=== PATIENT | female | born 1985 | race Two or more races ===

== ENCOUNTER 2024-01-24 08:02 | Inpatient (IN) | payer OTHER, SELFPAY ==
[2024-01-24] VITALS (13 sets, daily range): BP systolic 149–197; BP diastolic 93–131; PULSE 69–87; RESP 16–20; TEMP 36–36.9; O2SAT 96–100; BMI 30.9; BMI 30.6
--- NOTE | ~2024-01-24 | US_ITS ---
EXAMINATION: US ABDOMEN LIMITED CLINICAL INFORMATION: Right upper quadrant pain. COMPARISON: None available. TECHNIQUE: Real-time imaging of the right upper quadrant abdominal viscera. FINDINGS: PANCREAS: Not well visualized. LIVER: Normal. The liver is normal in size. The liver contour is normal. Parenchymal echogenicity is normal. No focal hepatic lesion. There is mild intrahepatic biliary duct dilatation seen. GALLBLADDER: Gallbladder is enlarged. Multiple gallstones. There is mild gallbladder wall thickening in the blood bank laboratory technologist reports that the patient is tender over the gallbladder. Appearance questionable for acute cholecystitis. COMMON BILE DUCT: Slightly dilated measuring 1 cm. RIGHT KIDNEY: Normal. No hydronephrosis. No renal calculi or focal parenchymal lesions. The kidney measures 11 cm in maximum dimension. FREE FLUID: None. US/US abdomen limited IMPRESSION: Gallstones. Upper normal-size gallbladder and gallbladder wall findings questionable for acute cholecystitis. Mild intrahepatic and extrahepatic biliary duct dilatation. Common bile duct measures up to 1 cm. Pancreas not well visualized.
--- NOTE | ~2024-01-24 | CT_ITS ---
EXAMINATION: CT ABDOMEN AND PELVIS WITHOUT CONTRAST CLINICAL INFORMATION: Right upper quadrant pain and hematuria COMPARISON: Previous ultrasound from earlier the same day TECHNIQUE: Multidetector volumetric imaging was performed from the superior aspect of the liver through the pubic symphysis. Sagittal and coronal reformatted images were obtained on the technologist's workstation. This CT examination was performed using dose optimization techniques as appropriate, variously including the following: *Automated exposure control *Adjustment of mA and/or kV according to patient size (this includes techniques or standardized protocols for targeted exams where dose is matched to indication/reason for exam; i.e. extremities or head) *Use of iterative reconstruction technique DLP: 653 mGy-cm FINDINGS: LUNG BASES: The visualized lung bases are unremarkable. LIVER, GALLBLADDER, AND BILIARY TREE: The liver is normal in size, shape, and attenuation. No focal hepatic lesion. No intrahepatic biliary duct dilatation. Mild dilatation of the common bile duct measuring 1 cm. No common bile duct stone appreciated by CT. The gallbladder is slightly enlarged. There are gallstones. The gallbladder wall appears thickened and there is stranding of the pericholecystic fat. Appearance is suggestive of cholecystitis. PANCREAS: Unremarkable. SPLEEN: Unremarkable. ADRENAL GLANDS: 1.5 cm left adrenal nodule. Hounsfield units measure 10 and this probably represents a benign lipid rich adenoma. No imaging follow-up recommended. Normal right adrenal gland. KIDNEYS AND URETERS: The kidneys are normal in size, shape, and attenuation. Small nonobstructing stone in the mid to lower pole of the right kidney. No hydronephrosis ureteral dilatation or ureteral stone. BLADDER: Unremarkable. GASTROINTESTINAL TRACT: Mild diverticulosis of the colon. No evidence of diverticulitis. The small and large bowel are otherwise unremarkable. The appendix is unremarkable. ABDOMINAL WALL: No significant hernia is appreciated. LYMPH NODES: Normal. VASCULAR: Unremarkable. PELVIC VISCERA: IUD in the uterus in satisfactory position. Trace fluid in the pelvis. OSSEOUS STRUCTURES: Unremarkable. CT/CT abdomen pelvis wo IV con IMPRESSION: Small nonobstructing right renal stone. Abnormal appearing gallbladder suggestive of gallstones and acute cholecystitis. Dilated common bile duct measuring 1 cm. No common bile duct stone seen by CT. Diverticulosis. Fleischner guidelines were followed. Findings will be communicated by the [place] workflow media relations director.
--- NOTE | 2024-01-24 08:15 | ED_ITS ---
HPI - Abdominal Pain General Chief Complaint: Abdominal Pain Stated Complaint: Upper Rt Abd Pain Time Seen by Provider: 01/24/24 08:12 Source: patient Mode of arrival: ambulatory Limitations: no limitations History of Present Illness HPI narrative: 38-year-old female presents to the ER for evaluation of right upper quadrant abdominal pain that started last night along with nausea and vomiting. She reports around 1:30am patient she started having severe pain in her RUQ that wrapped around to her right back along with nausea and multiple episodes of bilious vomiting. Pain persisted so she came to the ER for evaluation. She denies any urinary symptoms, no fever, chills, diarrhea or constipation. No chest pain or SOB. Pain is 10/10 in the RUQ. She reports having 2 small margaritas last night, only social drinks, no daily ETOH. and no drug use., MD elicited complaint: abdominal pain Onset (ago): hour(s) Pain Consistency: constant Location: RUQ Severity: severe Pain scale (0-10): 10 Quality: stabbing Radiation: back Migration to: no migration Exacerbating factors: movement Relieving factors: nothing Associated symptoms: nausea and vomiting Related Data Hx Last Menstrual Period: years ago, has IUD Patient : No Home Medications ?Medication ?Instructions ?Recorded ?Confirmed ibuprofen 200 mg tablet 400 mg PO Q8H PRN Pain 01/24/24 01/24/24 Allergies Allergy/AdvReac Type Severity Reaction Status Date / Time No Known Allergies Allergy Verified 01/24/24 08:10 Review of Systems Review of Systems Yes all other systems are reviewed and are negative [facility] Past Medical History Medical History (Updated 01/24/24 @ 14:02 by LATOYA Barrera) Urinary tract infection Acute cholecystitis Hx Last Menstrual Period: years ago, has IUD Social History Social History Smoked in Last 30 Days: No Use of substances other than those prescribed or required for medical reasons: No Advance Directives: No Advance Directives Information Provided: No Do you have a plan to hurt others: No Plan Patient : No Physical Exam ED Vital Signs: Vital Signs - 24 hr 01/24/24 08:06 01/24/24 08:28 01/24/24 08:48 Temperature 96.8 F Pulse Rate 85 86 Respiratory Rate 18 19 18 Blood Pressure 197/131 H 194/115 H Pulse Oximetry 96 98 Oxygen Delivery Method Room Air Room Air 01/24/24 10:14 01/24/24 10:25 01/24/24 12:04 Temperature 98.4 F Pulse Rate 74 73 Respiratory Rate 16 16 16 Blood Pressure 190/116 H 177/109 H Pulse Oximetry 100 98 Oxygen Delivery Method Room Air Room Air BMI result Body Mass Index 30.9 Appearance: Alert. Oriented X3. Laying on the bed hunched over in pain Head: normocephalic, atraumatic. Eyes: Pupils equal, round and reactive to light. ENT: Pharynx normal. No tonsillar swelling or exudate. Neck: Normal inspection. Neck supple. CVS: Normal heart rate and rhythm. Pulses normal. Respiratory: No respiratory distress. Breath sounds normal. Abdomen: Soft with moderate RUQ tenderness w/ guarding, no rebound, +Byrd's sign. normal active bowel sounds Skin: Skin warm and dry. Normal skin color. Normal skin turgor. No rashes. Extremities: No lower extremity edema. No joint swelling. Neuro/psych: Oriented X 3. No motor deficit. No sensory deficit. CN II-XII intact. Normal speech and cognition. Medical Decision Making Medical Decision Making MDM Narrative: 38 yo female presenting with acute onset of RUQ abdominal pain, N/V since last night. Hypertensive on arrival 190/110, likely due to severe pain. No hx HTN. IV established and given IV morphine and zofran. Labs and RUQ U/S ordered Labs showing mild leukocytosis. LFTs w/ mild ALP elevation, normal transaminases. Continued pain after morphine. another dose ordered. BP remains elevated. no chest pain, headache or vision changes. will continue to treat pain and reassess UA with infection. no urinary symptoms. IV rocephin ordered - lactic normal. blood cultures sent. US w/ acute cholecystitis. no CBD stone seen. Dr. Jack consulted for admission ?kidney stone. CT scan ordered for better assessment CT w/ findings c/w acute cholecystitis. no ureteral stone. patient to be admitted to Surgery service w/ medicine consult for hypertension. patient updated on plan of care. Differential Diagnosis Differential Diagnoses: The differential diagnosis associated with the presentation includes acute cholecystitis, choledocholithiasis, ascending cholangitis, pyelonephritis, obstructing kidney stone, UTI Admission/Observation Consideration of admission/observation: Escalation of care including admission/observation considered Consult Healthcare Provider Management of the patient was discussed with: Redrying Machine Operator Dr. Jack Lab Data MDM Lab Attestation statement: I reviewed the patient's lab results. mild leukocytosis, thrombocytosis 01/24/24 08:44 01/24/24 08:18 Labs: Lab Results 01/24/24 01/24/24 01/24/24 Range/Units 08:18 08:44 09:44 WBC 12.4 H (4.8-10.8) X10*3/uL RBC 4.70 (4.20-5.50) X10*6/uL Hgb 13.7 (12.0-16.0) g/dl Hct 40.0 (37.0-47.0) % MCV 85.1 (80.0-98.0) fL MCH 29.1 (27.0-33.0) pg MCHC 34.3 (31.0-35.0) g/dl RDW 12.6 (11.0-16.0) % Plt Count 521 H (160-400) X10*3/uL MPV 8.8 L (9.4-12.3) fL Immature Gran % (Auto) 0.4 (0.0-0.4) % Neut % (Auto) 83.8 H (45-73) % Lymph % (Auto) 12.9 L (20-40) % [place] % (Auto) 2.7 (2-11) % Eos % (Auto) 0.0 (0-4) % Baso % (Auto) 0.2 (0-2) % Lymph # (Auto) 1.6 (1.2-4.9) X10*3/uL [place] # (Auto) 0.3 (0.1-1.2) X10*3/uL Eos # (Auto) 0.0 (0.0-0.4) X10*3/uL Baso # (Auto) 0.0 (0.0-0.2) X10*3/uL Abs Immat Gran (auto) 0.05 H (0.00-0.03) X10*3/uL Absolute Neuts (auto) 10.4 H (2.0-8.3) x10*3/uL Absolute Nucleated RBC 0.000 (0.0-0.012) X10*3/uL Nucleated RBC % (auto) 0.0 (0.0-0.2) /100WBC Sodium 136 (135-145) mmol/L Potassium 3.7 (3.3-5.1) mmol/L Chloride 102 (96-108) mmol/L Carbon Dioxide 21 L (22-29) mmol/L Anion Gap 17 (12-20) BUN 7 L (9-16) mg/dL Creatinine 0.70 (0.5-1.4) mg/dL Estim Creat Clear Calc 126.7 Estimated GFR > 60 Random Glucose 155 H (60-115) mg/dL Lactic Acid (0.5-2.0) mmol/L Calcium 9.8 (8.4-10.2) mg/dL Total Bilirubin 0.6 (0.0-1.0) mg/dL AST 18 (5-31) U/L ALT 22 (0-31) U/L Alkaline Phosphatase 127 H (39-117) U/L Total Protein 8.6 H (6.5-8.0) g/dL Albumin 4.4 (3.5-5.0) g/dL Lipase 13 (8-78) U/L Urine Color Yellow Urine Appearance Cloudy Urine pH 8.0 (5.0-9.0) Ur Specific [place] 1.015 (1.005-1.025) Urine Protein 100 (2+) H (Neg-Trace) mg/dL Urine Glucose (UA) Negative (Negative) mg/dL Urine Ketones Trace (Negative) mg/dL Urine Blood Large (3+) H (Negative) Urine Nitrite Positive H (Negative) Ur Leukocyte Esterase Negative (Negative) Urine RBC >20 H (0-2) /HPF Urine WBC 21-50 H (0-5) /HPF Ur Squamous Epith Cells 3-5 (0-2) /HPF Urine Bacteria 3+ (None Seen) Hyaline Casts 0-2 (0-2) /LPF Influenza Type A (PCR) NEGATIVE (Negative) Influenza Type B (PCR) NEGATIVE (Negative) RSV RNA Qual (PCR) NEGATIVE (Negative) SARS-CoV-2 RNA (RT-PCR) NEGATIVE (Negative) 01/24/24 Range/Units 10:59 WBC (4.8-10.8) X10*3/uL RBC (4.20-5.50) X10*6/uL Hgb (12.0-16.0) g/dl Hct (37.0-47.0) % MCV (80.0-98.0) fL MCH (27.0-33.0) pg MCHC (31.0-35.0) g/dl RDW (11.0-16.0) % Plt Count (160-400) X10*3/uL MPV (9.4-12.3) fL Immature Gran % (Auto) (0.0-0.4) % Neut % (Auto) (45-73) % Lymph % (Auto) (20-40) % [place] % (Auto) (2-11) % Eos % (Auto) (0-4) % Baso % (Auto) (0-2) % Lymph # (Auto) (1.2-4.9) X10*3/uL [place] # (Auto) (0.1-1.2) X10*3/uL Eos # (Auto) (0.0-0.4) X10*3/uL Baso # (Auto) (0.0-0.2) X10*3/uL Abs Immat Gran (auto) (0.00-0.03) X10*3/uL Absolute Neuts (auto) (2.0-8.3) x10*3/uL Absolute Nucleated RBC (0.0-0.012) X10*3/uL Nucleated RBC % (auto) (0.0-0.2) /100WBC Sodium (135-145) mmol/L Potassium (3.3-5.1) mmol/L Chloride (96-108) mmol/L Carbon Dioxide (22-29) mmol/L Anion Gap (12-20) BUN (9-16) mg/dL Creatinine (0.5-1.4) mg/dL Estim Creat Clear Calc Estimated GFR Random Glucose (60-115) mg/dL Lactic Acid 1.0 (0.5-2.0) mmol/L Calcium (8.4-10.2) mg/dL Total Bilirubin (0.0-1.0) mg/dL AST (5-31) U/L ALT (0-31) U/L Alkaline Phosphatase (39-117) U/L Total Protein (6.5-8.0) g/dL Albumin (3.5-5.0) g/dL Lipase (8-78) U/L Urine Color Urine Appearance Urine pH (5.0-9.0) Ur Specific [place] (1.005-1.025) Urine Protein (Neg-Trace) mg/dL Urine Glucose (UA) (Negative) mg/dL Urine Ketones (Negative) mg/dL Urine Blood (Negative) Urine Nitrite (Negative) Ur Leukocyte Esterase (Negative) Urine RBC (0-2) /HPF Urine WBC (0-5) /HPF Ur Squamous Epith Cells (0-2) /HPF Urine Bacteria (None Seen) Hyaline Casts (0-2) /LPF Influenza Type A (PCR) (Negative) Influenza Type B (PCR) (Negative) RSV RNA Qual (PCR) (Negative) SARS-CoV-2 RNA (RT-PCR) (Negative) Independent Interpretation I performed an independent interpretation of an: Ultrasound and CT Scan Interpretation: US w/ gallstones, BG wall thickening. CBD 1cm CT with stones in the right kidney, no ureteral stones, GB enlarged, agree w/ radiology read Radiology Impression Discussion of test interpretation with radiology: I have reviewed the radiologist's reading. Radiologist Impression: EXAMINATION: CT ABDOMEN AND PELVIS WITHOUT CONTRAST CLINICAL INFORMATION: Right upper quadrant pain and hematuria COMPARISON: Previous ultrasound from earlier the same day TECHNIQUE: Multidetector volumetric imaging was performed from the superior aspect of the liver through the pubic symphysis. Sagittal and coronal reformatted images were obtained on the technologist's workstation. This CT examination was performed using dose optimization techniques as appropriate, variously including the following: *Automated exposure control *Adjustment of mA and/or kV according to patient size (this includes techniques or standardized protocols for targeted exams where dose is matched to indication/reason for exam; i.e. extremities or head) *Use of iterative reconstruction technique DLP: 653 mGy-cm FINDINGS: LUNG BASES: The visualized lung bases are unremarkable. LIVER, GALLBLADDER, AND BILIARY TREE: The liver is normal in size, shape, and attenuation. No focal hepatic lesion. No intrahepatic biliary duct dilatation. Mild dilatation of the common bile duct measuring 1 cm. No common bile duct stone appreciated by CT. The gallbladder is slightly enlarged. There are gallstones. The gallbladder wall appears thickened and there is stranding of the pericholecystic fat. Appearance is suggestive of cholecystitis. PANCREAS: Unremarkable. SPLEEN: Unremarkable. ADRENAL GLANDS: 1.5 cm left adrenal nodule. Hounsfield units measure 10 and this probably represents a benign lipid rich adenoma. No imaging follow-up recommended. Normal right adrenal gland. KIDNEYS AND URETERS: The kidneys are normal in size, shape, and attenuation. Small nonobstructing stone in the mid to lower pole of the right kidney. No hydronephrosis ureteral dilatation or ureteral stone. BLADDER: Unremarkable. GASTROINTESTINAL TRACT: Mild diverticulosis of the colon. No evidence of diverticulitis. The small and large bowel are otherwise unremarkable. The appendix is unremarkable. ABDOMINAL WALL: No significant hernia is appreciated. LYMPH NODES: Normal. VASCULAR: Unremarkable. PELVIC VISCERA: IUD in the uterus in satisfactory position. Trace fluid in the pelvis. OSSEOUS STRUCTURES: Unremarkable. CT/CT abdomen pelvis wo IV con IMPRESSION: Small nonobstructing right renal stone. Abnormal appearing gallbladder suggestive of gallstones and acute cholecystitis. Dilated common bile duct measuring 1 cm. No common bile duct stone seen by CT. Diverticulosis. Independent Historian Clinical information obtained from an independent historian. History obtained from or confirmed by: Spouse Prescription Management I considered prescription management with: Pain Medication and Antibiotic Medications Administered Discontinued Medications Generic Name Dose Route Start Last Admin Trade Name Freq PRN Reason Stop Dose Admin Sodium Chloride 1,000 mls @ 999 mls/hr 01/24/24 08:45 01/24/24 10:11 Ns IV 01/24/24 09:45 Infused .Q1H1M RUSSELL Infusion Ceftriaxone Sodium 1 gm/ 50 mls @ 100 mls/hr 01/24/24 10:31 01/24/24 12:06 Sodium Chloride IV 01/24/24 11:00 Infused ONCE ONE Infusion Morphine Sulfate 4 mg 01/24/24 08:38 01/24/24 08:48 Morphine Sulfate 4 Mg/Ml Cartridge IVPUSH 01/24/24 08:39 4 mg ONCE ONE Administration Protocol Morphine Sulfate 4 mg 01/24/24 10:15 01/24/24 10:25 Morphine Sulfate 4 Mg/Ml Cartridge IVPUSH 01/24/24 10:16 4 mg ONCE ONE Administration Protocol Ondansetron HCl 4 mg 01/24/24 08:38 01/24/24 08:48 Ondansetron Hcl 4 Mg/2 Ml Vial IVPUSH 01/24/24 08:39 4 mg ONCE ONE Administration Critical Care Time Critical Care Time Critical Care Time: Yes Total Critical Care Time: 49 Attestation: I have personally provided critical care time exclusive of time spent on separately billable procedures. Time includes review of lab data, radiology results, discussion with consultants, and monitoring for potential decompensation. Intervention performed as documented. Discharge Plan Discharge Clinical Impression: Acute cholecystitis, Urinary tract infection Patient Disposition: Admitted As Inpatient
[2024-01-24 08:48] LABS: MANUAL DIFF FLAG NO
[2024-01-24] MEDS: ondansetron HCL 4 MG/2 ML VIAL IVPUSH (08:48)
[2024-01-24] MEDS: Morphine Sulfate 4 MG/ML CARTRIDGE IVPUSH ×2 (08:48→10:25)
[2024-01-24] MEDS: 0.9 % Sodium Chloride 1,000 ML 999 ML IV (08:54)
[2024-01-24 08:55] LABS: Basophils Percent Auto 0.2 % (0-2); Hemoglobin 13.7 g/dl (12.0-16.0); Imm Gran Abs Auto 0.05 X10*3/uL (0.00-0.03); Imm Gran Pct Auto 0.4 % (0.0-0.4); Lymphocytes Absolute Auto 1.6 X10*3/uL (1.2-4.9); Lymphocytes Percent Auto 12.9 % (20-40); Mean Corpuscular HGB Conc 34.3 g/dl (31.0-35.0); Mean Corpuscular Hemoglobin 29.1 pg (27.0-33.0); Mean Corpuscular Volume 85.1 fL (80.0-98.0); Mean Platelet Volume 8.8 fL (9.4-12.3); Monocytes Absolute Auto 0.3 X10*3/uL (0.1-1.2); Monocytes Percent Auto 2.7 % (2-11); Neutrophils Absolute Auto 10.4 x10*3/uL (2.0-8.3); Neutrophils Percent Auto 83.8 % (45-73); Platelet Count 521 X10*3/uL (160-400); Red Cell Distribution Width 12.6 % (11.0-16.0); White Blood Count 12.4 X10*3/uL (4.8-10.8)
[2024-01-24 09:06] LABS: Alanine Aminotransferase 22 U/L (0-31); Albumin Level 4.4 g/dL (3.5-5.0); Alkaline Phosphatase 127 U/L (39-117); Anion Gap 17 (12-20); Aspartate Amino Transferase 18 U/L (5-31); Bilirubin Total 0.6 mg/dL (0.0-1.0); Blood Urea Nitrogen 7 mg/dL (9-16); Calcium 9.8 mg/dL (8.4-10.2); Carbon Dioxide 21 mmol/L (22-29); Chloride 102 mmol/L (96-108); Creatinine Clr Calc Pharmacy 126.7; Estimated Glomerular Filt Rate > 60; Glucose Random 155 mg/dL (60-115); Lipase 13 U/L (8-78); Potassium 3.7 mmol/L (3.3-5.1); Sodium 136 mmol/L (135-145); Total Protein 8.6 g/dL (6.5-8.0)
[2024-01-24 09:13] LABS: Influenza A PCR NEGATIVE (Negative); Influenza B PCR NEGATIVE (Negative); Resp Syncy Virus RNA Qual PCR NEGATIVE (Negative); SARS COV2 PCR INHOUSE NEGATIVE (Negative)
[2024-01-24 09:52] LABS: Appearance Urine Cloudy; Color Urine Yellow; Glucose Urine UA Negative (Negative); Leukocyte Esterase Urine Negative (Negative); Nitrite Urine Positive (Negative); Specific Gravity - Urine 1.015 (1.005-1.025); UMIC TRIGGER UACC YES; Urine Blood Large (3+) (Negative); Urine Ketones Trace mg/dL (Negative); Urine Protein 100 (2+) mg/dL (Neg-Trace)
[2024-01-24 09:59] LABS: Bacteria Urine 3+ (None Seen); Hyaline Casts Urine 0-2 /LPF (0-2); RBC Urine >20 /HPF (0-2); UACC Culture Trigger YES; WBC Urine 21-50 /HPF (0-5)
[2024-01-24] MEDS: cefTRIAXone sodium 1 GM in 0.9 % Sodium Chloride 50 ML IV (11:06)
--- NOTE | 2024-01-24 13:19 | PM.HPGS ---
History of Present Illness History of Present Illness Date of Service: 01/29/24 Chief complaint: acute cholecystitis Narrative: rSinivas Flynn is a 38 year old female ER for right upper quadrant pain and tenderness. She says that this started about 01:00 o'clock in the morning. This has been persistent since then. She describes some episodes of vomiting at home. She denies any correlation of the pain with oral intake. In view of the persistence of the pain, she came to the emergency room early this morning She says she has never had any similar episodes in the past. She does not have any primary care physician, and her blood pressures have been elevated here in the ER. She denies having previous abdominal surgeries. Review of Systems Constitutional: Constitutional: Denies chills and Denies fever(s) Cardiovascular: Cardiovascular: Denies chest pain, Denies dyspnea and Denies dyspnea on exertion Respiratory: Respiratory: Denies cough, Denies dyspnea and Denies dyspnea on exertion Gastrointestinal: Gastrointestinal: Denies hematochezia and Denies change in bowel habits Genitourinary: Genitourinary: Denies hematuria Musculoskeletal: Musculoskeletal: Denies back pain and Denies limited range of motion Neurologic: Denies focal weakness and Denies convulsions Psychiatric: Psychiatric: Denies depression and Denies mood swings PMFSH Past Medical History Medical History Urinary tract infection Acute cholecystitis Social History Social History Household Members: Spouse and Children Housing: House Do you presently have visiting nurse or other home services: No Patient Tobacco Use Status: Former Tobacco user Tobacco use type: Cigarette Second Hand Smoke Exposure: No service: No Meds Allergies Allergy/AdvReac Type Severity Reaction Status Date / Time No Known Allergies Allergy Verified 01/24/24 08:10 Active Medications: Current Medications Acetaminophen (Acetaminophen 325 Mg Tablet) 650 mg PO Q6H PRN PRN Reason: Pain, Mild (Pain Scale 1-3) Dextrose/Sodium Chloride (D5ns) 1,000 mls @ 100 mls/hr IVCONT .Q10H RUSSELL Morphine Sulfate (Morphine Sulfate 4 Mg/Ml Cartridge) 3 mg IVPUSH Q3H PRN; Protocol PRN Reason: Pain, Severe (Pain Scale 7-10) Sodium Chloride (0.9 % Sodium Chloride Flush 3 Ml Syringe) 3 ml IVFLUSH QSHIFT RUSSELL Physical Exam Vital Signs: Vital Signs: Last Vital Signs Temp 98.4 F 01/24/24 12:04 Pulse 73 01/24/24 12:04 Resp 16 01/24/24 12:04 BP 177/109 H 01/24/24 12:04 Pulse Ox 98 01/24/24 12:04 O2 Del Method Room Air 01/24/24 12:04 BMI result Body Mass Index 30.9 Const: General: comfortable and no acute distress Orientation/consciousness: patient oriented x3 Eyes: Other: Nonicteric sclerae Neck: Neck: Yes no lymphadenopathy Resp: Auscultation: clear to auscultation bilaterally Cardio: Rhythm: regular rhythm GI: Other: Tender in the right upper quadrant Palpation (GI): Soft to palpation, nontender and no guarding Neuro: General: patient oriented x3 Results Results Labs: Short CBC 01/24/24 Range/Units 08:44 WBC 12.4 H (4.8-10.8) X10*3/uL Hgb 13.7 (12.0-16.0) g/dl Hct 40.0 (37.0-47.0) % Plt Count 521 H (160-400) X10*3/uL BMP 01/24/24 08:18 Sodium 136 Potassium 3.7 Chloride 102 Carbon Dioxide 21 L BUN 7 L Creatinine 0.70 Calcium 9.8 Liver Function 01/24/24 Range/Units 08:18 Total Bilirubin 0.6 (0.0-1.0) mg/dL AST 18 (5-31) U/L ALT 22 (0-31) U/L Alkaline Phosphatase 127 H (39-117) U/L Albumin 4.4 (3.5-5.0) g/dL Urine 01/24/24 Range/Units 09:44 Urine Color Yellow Urine Appearance Cloudy Urine pH 8.0 (5.0-9.0) Ur Specific [place] 1.015 (1.005-1.025) Urine Protein 100 (2+) H (Neg-Trace) mg/dL Urine Glucose (UA) Negative (Negative) mg/dL Abdomen CT scan report/results: image reviewed CT scan - pelvis: image reviewed Abdominal ultrasound report/results: report reviewed and image reviewed Assessment and Plan (1) Acute cholecystitis: Status: Acute She has had right upper quadrant pain and tenderness since early this morning. I have reviewed her ultrasound as well as her CT scan. This is suggestive of acute cholecystitis with gallstones. I had a long discussion with her about excision of proceeding with cholecystectomy. I explained the technique of laparoscopic cholecystectomy and possible conversion to open cholecystectomy. I reviewed the risks including but not limited to bleeding, infections, injury to bowel and liver, injury to the bile ducts, retained stones, bile leak, as well as the benefits and alternatives. She is undecided at this time but will put her on the add on schedule for tomorrow. Her was with her during the long discussion. She does not have any primary care physician and has not seen any doctor in many years. I will consult the hospitalist service in view of her hypertension here in the ER although this may be aggravated by pain. (2) Urinary tract infection: Status: Acute Her UA here in the ER shows nitrites and leukocytes consistent with urinary tract infection. She denies any dysuria. She does not have any symptoms at all. She will be on antibiotics for her cholecystitis so this should cover likely jenn for her urinary tract infection. Quality Stroke Does the patient have a stroke diagnosis?: No VTE Prior VTE?: No VTE Risk Level:: Medical - low VTE Device Contraindication: N/A - Device Ordered VTE Drug Contraindication: Treatment Not Indicated Procedures Date of Service Date of Service: 01/29/24
--- NOTE | 2024-01-24 13:51 | PHA.MEDREC ---
Pharmacy Consult ? Medication Reconciliation Pharmacy has completed the medication reconciliation.
[2024-01-24] MEDS: Ketorolac Tromethamine 15 MG/ML VIAL IVPUSH ×2 (14:03→20:16)
[2024-01-24] MEDS: Piperacillin Sodium/Tazobactam 3.375 GM in 0.9 % Sodium Chloride 50 ML IV ×2 (14:05→20:06)
[2024-01-24] MEDS: Dextrose 5 % and 0.9 % NaCl 1,000 ML 100 ML IVCONT ×2 (14:37→23:58)
[2024-01-24] MEDS: amLODIPine Besylate 5 MG TABLET PO (16:16)
--- NOTE | 2024-01-24 18:18 | HO.PM.IMCN ---
History of Present Illness Data of Consult Service Date: 01/24/24 Primary Care Provider: None Physician HPI Reason for consult: Hypertension Patient is a 38-year-old female with no significant PMH who initially presented to the emergency department with right upper quadrant abdominal pain radiating to her back, nausea, and vomiting since last night. CT scan of abdomen and pelvis found acute cholecystitis and patient was admitted to general surgery service for possible cholecystectomy. Hospitalist consult for HTN management. Pt's blood pressure has been elevated in the ED as high as 197/131. Patient reports has no significant PMH and is not on any home medications, though notes does not currently have a PCP and has not seen a primary care provider for many, many years. Patient does not regularly check her blood pressure. Patient has been experiencing occasional headaches recently and has noticed some long distance vision loss. Otherwise no chronic complaints. Pain and nausea reasonably well-controlled at this time. Reports family history of HTN and diabetes. Review of Systems Review of Systems: RUQ pain radiating to back N/V Occasional headache No diarrhea Denies chest pain/pressure or palpitaitons No SOB Denies fever, chills PMFSH Medical History Urinary tract infection Acute cholecystitis Social History Household Members: Spouse and Children Housing: House Do you presently have visiting nurse or other home services: No Patient Tobacco Use Status: Former Tobacco user Tobacco use type: Cigarette Smoked in Last 30 Days: No Patient Given Instructions on How to Stop Smoking: No Second Hand Smoke Exposure: No Use of substances other than those prescribed or required for medical reasons: No Currently Displaying Signs/Symptoms of Drug Intoxication Withdrawal: No Any prior treatment program specific to substance use: No Have you been hit, kicked, punched, or otherwise hurt by someone within the past year? If so, by whom?: No Do you feel safe in your current relationship?: Yes Is there a partner from a previous relationship who is making you feel unsafe now?: No Are you made to feel afraid or neglected: No Advance Directives: No Advance Directives Information Provided: No Advance Directives on File: No Do you have a plan to hurt others: No Plan Recently lost weight without trying: No Eating poorly because of decreased appetite: No Nutrition Risks: No Nutritional Risk Patient : No : No Poor oral hygiene: No Meds Allergies Allergy/AdvReac Type Severity Reaction Status Date / Time No Known Allergies Allergy Verified 01/24/24 08:10 Active Medications: Current Medications Acetaminophen (Acetaminophen 325 Mg Tablet) 650 mg PO Q6H PRN PRN Reason: Pain, Mild (Pain Scale 1-3) Amlodipine Besylate (Amlodipine Besylate 5 Mg Tablet) 5 mg PO DAILY [facility]; Protocol Last Admin: 01/24/24 16:16 Dose: 5 mg Dextrose/Sodium Chloride (D5ns) 1,000 mls @ 100 mls/hr IVCONT .Q10H [facility] Last Admin: 01/24/24 14:37 Dose: 100 mls/hr Piperacillin Sod/Tazobactam (Sod 3.375 gm/ Sodium Chloride) 50 mls @ 100 mls/hr IV Q6H [facility] Last Infusion: 01/24/24 14:37 Dose: Infused Ketorolac Tromethamine (Ketorolac Tromethamine 15 Mg/Ml Vial) 15 mg IVPUSH Q6H PRN PRN Reason: Pain, Severe (Pain Scale 7-10) Last Admin: 01/24/24 14:03 Dose: 15 mg Morphine Sulfate (Morphine Sulfate 4 Mg/Ml Cartridge) 3 mg IVPUSH Q3H PRN; Protocol PRN Reason: Pain, Severe (Pain Scale 7-10) Sodium Chloride (0.9 % Sodium Chloride Flush 3 Ml Syringe) 3 ml IVFLUSH QSHIFT [facility] Last Admin: 01/24/24 16:10 Dose: Not Given Home Medications ?Medication ?Instructions ?Recorded ?Confirmed ?Last Taken ?Type ibuprofen 200 mg tablet 400 mg PO Q8H PRN Pain 01/24/24 01/24/24 Unknown History Physical Exam Vital Signs and Narrative: Vital Signs: Last Vital Signs Temp 96.9 F 01/24/24 17:07 Pulse 69 01/24/24 17:07 Resp 18 01/24/24 17:07 BP 182/98 H 01/24/24 17:07 Pulse Ox 97 01/24/24 17:07 O2 Del Method Room Air 01/24/24 17:07 BMI result Body Mass Index 30.6 General: AOx3, no acute distress Resp: CTA bilaterally CVS: S1, S2, RRR GI: +BS, no distention, RUQ tenderness Skin: Warm, dry Neuro: Cranial nerves II-XII grossly intact bilaterally. Motor grossly intact bilaterally Extremities: No edema Psych: Appropriate affect Results Labs 01/24/24 08:44 01/24/24 08:18 Labs: Laboratory Results - last 24 hr 01/24/24 01/24/24 01/24/24 08:18 08:44 09:44 MCV 85.1 MCH 29.1 MCHC 34.3 RDW 12.6 Plt Count 521 H MPV 8.8 L Immature Gran % (Auto) 0.4 Neut % (Auto) 83.8 H Lymph % (Auto) 12.9 L [place] % (Auto) 2.7 Eos % (Auto) 0.0 Baso % (Auto) 0.2 Lymph # (Auto) 1.6 [place] # (Auto) 0.3 Eos # (Auto) 0.0 Baso # (Auto) 0.0 Abs Immat Gran (auto) 0.05 H Absolute Neuts (auto) 10.4 H Absolute Nucleated RBC 0.000 Nucleated RBC % (auto) 0.0 Anion Gap 17 Estim Creat Clear Calc 126.7 Estimated GFR > 60 Random Glucose 155 H Lactic Acid Calcium 9.8 Total Bilirubin 0.6 AST 18 ALT 22 Alkaline Phosphatase 127 H Total Protein 8.6 H Albumin 4.4 Lipase 13 Urine Color Yellow Urine Appearance Cloudy Urine pH 8.0 Ur Specific [place] 1.015 Urine Protein 100 (2+) H Urine Glucose (UA) Negative Urine Ketones Trace Urine Blood Large (3+) H Urine Nitrite Positive H Ur Leukocyte Esterase Negative Urine RBC >20 H Urine WBC 21-50 H Ur Squamous Epith Cells 3-5 Urine Bacteria 3+ Hyaline Casts 0-2 Influenza Type A (PCR) NEGATIVE Influenza Type B (PCR) NEGATIVE RSV RNA Qual (PCR) NEGATIVE SARS-CoV-2 RNA (RT-PCR) NEGATIVE 01/24/24 10:59 MCV MCH MCHC RDW Plt Count MPV Immature Gran % (Auto) Neut % (Auto) Lymph % (Auto) [place] % (Auto) Eos % (Auto) Baso % (Auto) Lymph # (Auto) [place] # (Auto) Eos # (Auto) Baso # (Auto) Abs Immat Gran (auto) Absolute Neuts (auto) Absolute Nucleated RBC Nucleated RBC % (auto) Anion Gap Estim Creat Clear Calc Estimated GFR Random Glucose Lactic Acid 1.0 Calcium Total Bilirubin AST ALT Alkaline Phosphatase Total Protein Albumin Lipase Urine Color Urine Appearance Urine pH Ur Specific [place] Urine Protein Urine Glucose (UA) Urine Ketones Urine Blood Urine Nitrite Ur Leukocyte Esterase Urine RBC Urine WBC Ur Squamous Epith Cells Urine Bacteria Hyaline Casts Influenza Type A (PCR) Influenza Type B (PCR) RSV RNA Qual (PCR) SARS-CoV-2 RNA (RT-PCR) Imaging Radiologist's Impressions: Impressions Abdomen Ultrasound 01/24/24 09:23 IMPRESSION: Gallstones. Upper normal-size gallbladder and gallbladder wall findings questionable for acute cholecystitis. Mild intrahepatic and extrahepatic biliary duct dilatation. Common bile duct measures up to 1 cm. Pancreas not well visualized. Abdomen/Pelvis CT 01/24/24 12:26 IMPRESSION: Small nonobstructing right renal stone. Abnormal appearing gallbladder suggestive of gallstones and acute cholecystitis. Dilated common bile duct measuring 1 cm. No common bile duct stone seen by CT. Diverticulosis. Fleischner guidelines were followed. Findings will be communicated by the [place] workflow steam hammer operator. Assessment and Plan (1) Acute cholecystitis: Status: Acute Plan Patient is a 38-year-old female with no significant PMH who initially presented to the emergency department with right upper quadrant abdominal pain radiating to her back, nausea, and vomiting since last night. CT scan of abdomen and pelvis found acute cholecystitis and patient was admitted to general surgery service for possible cholecystectomy. Hospitalist consult for HTN management. Acute cholecystitis Pain and nausea reasonably well-controlled on current therapies Plan as per General surgery HTN BP as high as 197/131 in the ED Will start on amlodipine 5 mg p.o. daily Hydralazine 5 mg IV q.6 p.r.n. for SBP >180 Elevated glucose levels Random glucose 155 at time of presentation Will check A1c Patient otherwise has no known chronic medical conditions. Thank you for allowing us to participate in the care of this patient. Will continue to follow along with you.
[2024-01-24] MEDS: Morphine Sulfate 4 MG/ML CARTRIDGE 3 MG IVPUSH (18:20)
[2024-01-24] MEDS: hydrALAZINE HCl 20 MG/ML VIAL 5 MG IVPUSH (18:36)
[2024-01-25] VITALS (21 sets, daily range): BP systolic 130–197; BP diastolic 63–121; PULSE 81–107; RESP 16–20; TEMP 36.1–37.2; O2SAT 95–100
[2024-01-25] MEDS: Piperacillin Sodium/Tazobactam 3.375 GM in 0.9 % Sodium Chloride 50 ML IV ×4 (01:56→19:53)
[2024-01-25 05:19] LABS: Estimated Average Glucose 128 mg/dL; Hemoglobin A1c % 6.1 % (<6.0)
[2024-01-25 07:30] LABS: Alanine Aminotransferase 14 U/L (0-31); Albumin Level 3.4 g/dL (3.5-5.0); Alkaline Phosphatase 99 U/L (39-117); Anion Gap 11 (12-20); Aspartate Amino Transferase 12 U/L (5-31); Bilirubin Total 0.8 mg/dL (0.0-1.0); Blood Urea Nitrogen 6 mg/dL (9-16); Carbon Dioxide 24 mmol/L (22-29); Chloride 105 mmol/L (96-108); Creatinine Clr Calc Pharmacy 119.3; Estimated Glomerular Filt Rate > 60; Glucose Random 139 mg/dL (60-115); Potassium 3.1 mmol/L (3.3-5.1); Sodium 137 mmol/L (135-145); Total Protein 6.7 g/dL (6.5-8.0)
--- NOTE | 2024-01-25 07:40 | PM.PNGS ---
Subjective Subjective Date of Service: 01/25/24 <Demetria Harry PA-C - Last Filed: 01/25/24 07:44> 01/25/24 <Parish Jack MD - Last Filed: 01/25/24 10:20> Interval history: C/o continued severe pain. Would like to proceed with surgery. <Demetria Harry PA-C - Last Filed: 01/25/24 07:44> Physical Exam Vital Signs: Vital Signs: Last Vital Signs Temp 97.4 F 01/25/24 03:45 Pulse 92 01/25/24 03:45 Resp 20 01/25/24 03:45 BP 158/87 H 01/25/24 03:45 Pulse Ox 99 01/25/24 03:45 O2 Del Method Room Air 01/25/24 03:45 BMI result Body Mass Index 30.6 <LUKE Patten Last Filed: 01/25/24 07:44> Const: General: comfortable, no acute distress and alert <LUKE Patten Last Filed: 01/25/24 07:44> Orientation/consciousness: patient oriented x3 <LUKE Patten Last Filed: 01/25/24 07:44> Resp: Effort & Inspection: normal respiratory effort <LUKE Patten Last Filed: 01/25/24 07:44> GI: Inspection: No distended <LUKE Patten Last Filed: 01/25/24 07:44> Palpation (GI): Soft to palpation, Tenderness to palpation present (GI) in the epigastrum and in the RUQ and no guarding <LUKE Patten Last Filed: 01/25/24 07:44> Skin: General skin exam: no rashes or lesions noted and no jaundice <LUKE Patten Last Filed: 01/25/24 07:44> Neuro: General: patient oriented x3 <LUKE Patten Last Filed: 01/25/24 07:44> Objective Data Active Medications Acetaminophen (Acetaminophen 325 Mg Tablet) 650 mg PO Q6H PRN PRN Reason: Pain, Mild (Pain Scale 1-3) Amlodipine Besylate (Amlodipine Besylate 5 Mg Tablet) 5 mg PO DAILY [facility]; Protocol Last Admin: 01/24/24 16:16 Dose: 5 mg Documented By: KENN Hydralazine HCl (Hydralazine Hcl 20 Mg/Ml Vial) 5 mg IVPUSH Q6H PRN; Protocol PRN Reason: SBP > 180 Dextrose/Sodium Chloride (D5ns) 1,000 mls @ 100 mls/hr IVCONT .Q10H [facility] Last Admin: 01/24/24 23:58 Dose: 100 mls/hr Documented By: FELIPA Piperacillin Sod/Tazobactam (Sod 3.375 gm/ Sodium Chloride) 50 mls @ 100 mls/hr IV Q6H [facility] Last Infusion: 01/25/24 02:30 Dose: Infused Documented By: FELIPA Ketorolac Tromethamine (Ketorolac Tromethamine 15 Mg/Ml Vial) 15 mg IVPUSH Q6H PRN PRN Reason: Pain, Severe (Pain Scale 7-10) Last Admin: 01/24/24 20:16 Dose: 15 mg Documented By: FELIPA Morphine Sulfate (Morphine Sulfate 4 Mg/Ml Cartridge) 3 mg IVPUSH Q3H PRN; Protocol PRN Reason: Pain, Severe (Pain Scale 7-10) Last Admin: 01/24/24 18:20 Dose: 3 mg Documented By: MARTHA Sodium Chloride (0.9 % Sodium Chloride Flush 3 Ml Syringe) 3 ml IVFLUSH QSHIFT [facility] Last Admin: 01/25/24 07:25 Dose: Not Given Documented By: HERACLIO Non-Admin Reason: IV Running <Demetria Harry PA-C - Last Filed: 01/25/24 07:44> Labs CBC & Chem 7: 01/24/24 08:44 01/25/24 06:59 <Demetria Harry PA-C - Last Filed: 01/25/24 07:44> Labs: Laboratory Results - last 24 hr 01/24/24 01/24/24 01/24/24 08:18 08:44 09:44 MCV 85.1 MCH 29.1 MCHC 34.3 RDW 12.6 Plt Count 521 H MPV 8.8 L Immature Gran % (Auto) 0.4 Neut % (Auto) 83.8 H Lymph % (Auto) 12.9 L [place] % (Auto) 2.7 Eos % (Auto) 0.0 Baso % (Auto) 0.2 Lymph # (Auto) 1.6 [place] # (Auto) 0.3 Eos # (Auto) 0.0 Baso # (Auto) 0.0 Abs Immat Gran (auto) 0.05 H Absolute Neuts (auto) 10.4 H Absolute Nucleated RBC 0.000 Nucleated RBC % (auto) 0.0 Anion Gap 17 Estim Creat Clear Calc 126.7 Estimated GFR > 60 Random Glucose 155 H Estimat Average Glucose 128 Hemoglobin A1c % 6.1 H Lactic Acid Calcium 9.8 Total Bilirubin 0.6 AST 18 ALT 22 Alkaline Phosphatase 127 H Total Protein 8.6 H Albumin 4.4 Lipase 13 Urine Color Yellow Urine Appearance Cloudy Urine pH 8.0 Ur Specific [place] 1.015 Urine Protein 100 (2+) H Urine Glucose (UA) Negative Urine Ketones Trace Urine Blood Large (3+) H Urine Nitrite Positive H Ur Leukocyte Esterase Negative Urine RBC >20 H Urine WBC 21-50 H Ur Squamous Epith Cells 3-5 Urine Bacteria 3+ Hyaline Casts 0-2 Influenza Type A (PCR) NEGATIVE Influenza Type B (PCR) NEGATIVE RSV RNA Qual (PCR) NEGATIVE SARS-CoV-2 RNA (RT-PCR) NEGATIVE Blood Type 01/24/24 01/25/24 10:59 06:59 MCV MCH MCHC RDW Plt Count MPV Immature Gran % (Auto) Neut % (Auto) Lymph % (Auto) [place] % (Auto) Eos % (Auto) Baso % (Auto) Lymph # (Auto) [place] # (Auto) Eos # (Auto) Baso # (Auto) Abs Immat Gran (auto) Absolute Neuts (auto) Absolute Nucleated RBC Nucleated RBC % (auto) Anion Gap 11 L Estim Creat Clear Calc 119.3 Estimated GFR > 60 Random Glucose 139 H Estimat Average Glucose Hemoglobin A1c % Lactic Acid 1.0 Calcium Total Bilirubin 0.8 AST 12 ALT 14 Alkaline Phosphatase 99 Total Protein 6.7 Albumin 3.4 L Lipase Urine Color Urine Appearance Urine pH Ur Specific [place] Urine Protein Urine Glucose (UA) Urine Ketones Urine Blood Urine Nitrite Ur Leukocyte Esterase Urine RBC Urine WBC Ur Squamous Epith Cells Urine Bacteria Hyaline Casts Influenza Type A (PCR) Influenza Type B (PCR) RSV RNA Qual (PCR) SARS-CoV-2 RNA (RT-PCR) Blood Type O Positive <Demetria Harry PA-C - Last Filed: 01/25/24 07:44> Procedures Date of Service Date of Service: 01/25/24 <Demetria Harry PA-C - Last Filed: 01/25/24 07:44> 01/25/24 <Parish Jack MD - Last Filed: 01/25/24 10:20> Progress Note: A&P Assessment and plan (1) Acute cholecystitis: Status: Acute <LUKE Patten Last Filed: 01/25/24 07:44> Assessment and Plan: still with RUQ tenderness no fever she wants to with laparoscopic cholecystectomy, possible open She understands the risks including but not limited to bleeding, infections, injury to other organs, bile leak as well as the benefits and alternatives She understands what to expect postoperatively LFTs normal this morning Patient seen and examined independently <Parish Jack MD - Last Filed: 01/25/24 10:20> (2) Urinary tract infection: Status: Acute <Demetria Harry PA-C - Last Filed: 01/25/24 07:44> Assessment and Plan: Admitted yesterday with acute cholecystitis. Would like to proceed with cholecystectomy. Risks, benefits, alternatives of laparoscopic possible open cholecystectomy were reviewed with the patient including but not limited to bleeding, infection, numbness, pain, poor healing, injury to the liver, bowel or bile ducts, leak, retained stones and the patient wishes to proceed.? She is added onto the OR schedule for today. All questions were answered. <Demetria Harry PA-C - Last Filed: 01/25/24 07:44> Time Spent With Patient Time: Total time managing care of this patient today ____ minutes. <Demetria Harry PA-C - Last Filed: 01/25/24 07:44> Quality Stroke Does the patient have a stroke diagnosis?: No <LUKE Patten Last Filed: 01/25/24 07:44> VTE Prior VTE?: No <LUKE Patten Last Filed: 01/25/24 07:44> VTE Risk Level:: Medical - low <Demetria Harry PA-C - Last Filed: 01/25/24 07:44> VTE Device Contraindication: N/A - Device Ordered <Demetria Harry PA-C - Last Filed: 01/25/24 07:44> VTE Drug Contraindication: Treatment Not Indicated <Demetria Harry PA-C - Last Filed: 01/25/24 07:44>
[2024-01-25 07:52] LABS: Calcium 8.4 mg/dL (8.4-10.2)
[2024-01-25] MEDS: amLODIPine Besylate 5 MG TABLET PO ×2 (07:55→17:17)
[2024-01-25] MEDS: Ketorolac Tromethamine 15 MG/ML VIAL IVPUSH (07:55)
[2024-01-25] MEDS: Potassium Chloride ER 20 MEQ TAB.ER.PRT 40 MEQ PO (08:39)
--- NOTE | 2024-01-25 09:43 | HO.ANESPROP2 ---
[facility] Active Problems Active Problems: All Active Problems Urinary tract infection (Acute) Acute cholecystitis (Acute) Past Medical History Medical History Urinary tract infection Acute cholecystitis Family History Family history of problems with anesthesia: No Surgical History History of Problems with Anesthesia: No Social History Social History Household Members: Spouse and Children Housing: House Do you presently have visiting nurse or other home services: No Patient Tobacco Use Status: Former Tobacco user Tobacco use type: Cigarette Smoked in Last 30 Days: No Patient Given Instructions on How to Stop Smoking: No Second Hand Smoke Exposure: No Use of substances other than those prescribed or required for medical reasons: No Currently Displaying Signs/Symptoms of Drug Intoxication Withdrawal: No Any prior treatment program specific to substance use: No Have you been hit, kicked, punched, or otherwise hurt by someone within the past year? If so, by whom?: No Do you feel safe in your current relationship?: Yes Is there a partner from a previous relationship who is making you feel unsafe now?: No Are you made to feel afraid or neglected: No Are you DNR?: No Advance Directives: No Advance Directives Information Provided: No Advance Directives on File: No Do you have a plan to hurt others: No Plan Recently lost weight without trying: No Eating poorly because of decreased appetite: No Nutrition Risks: No Nutritional Risk Patient : No : No Poor oral hygiene: No Meds Allergies Allergy/AdvReac Type Severity Reaction Status Date / Time No Known Allergies Allergy Verified 01/24/24 08:10 Active Medications: Current Medications Acetaminophen (Acetaminophen 325 Mg Tablet) 650 mg PO Q6H PRN PRN Reason: Pain, Mild (Pain Scale 1-3) Amlodipine Besylate (Amlodipine Besylate 5 Mg Tablet) 5 mg PO DAILY [facility]; Protocol Last Admin: 01/25/24 07:55 Dose: 5 mg Hydralazine HCl (Hydralazine Hcl 20 Mg/Ml Vial) 5 mg IVPUSH Q6H PRN; Protocol PRN Reason: SBP > 180 Dextrose/Sodium Chloride (D5ns) 1,000 mls @ 100 mls/hr IVCONT .Q10H [facility] Last Infusion: 01/25/24 09:42 Dose: Infused Piperacillin Sod/Tazobactam (Sod 3.375 gm/ Sodium Chloride) 50 mls @ 100 mls/hr IV Q6H [facility] Last Infusion: 01/25/24 08:42 Dose: Infused Ketorolac Tromethamine (Ketorolac Tromethamine 15 Mg/Ml Vial) 15 mg IVPUSH Q6H PRN PRN Reason: Pain, Severe (Pain Scale 7-10) Last Admin: 01/25/24 07:55 Dose: 15 mg Lisinopril (Lisinopril 10 Mg Tablet) 10 mg PO DAILY [facility]; Protocol Last Admin: 01/25/24 09:42 Dose: Not Given Morphine Sulfate (Morphine Sulfate 4 Mg/Ml Cartridge) 3 mg IVPUSH Q3H PRN; Protocol PRN Reason: Pain, Severe (Pain Scale 7-10) Last Admin: 01/24/24 18:20 Dose: 3 mg Sodium Chloride (0.9 % Sodium Chloride Flush 3 Ml Syringe) 3 ml IVFLUSH QSHIFT [facility] Last Admin: 01/25/24 07:25 Dose: Not Given Home Medications ?Medication ?Instructions ?Recorded ?Confirmed ?Last Taken ?Type ibuprofen 200 mg tablet 400 mg PO Q8H PRN Pain 01/24/24 01/24/24 Unknown History Exam Height,Weight and Vital Signs: Height 5 ft 8 in Weight 91.2 kg Last Vital Signs Temp 99.0 F 01/25/24 09:39 Pulse 93 01/25/24 09:39 Resp 16 01/25/24 09:39 BP 151/99 H 01/25/24 09:39 Pulse Ox 98 01/25/24 09:39 O2 Del Method Room Air 01/25/24 09:39 Pertinent Lab Results Pertinent Lab Results: Laboratory Tests 01/24/24 01/24/24 01/24/24 08:18 08:44 09:44 WBC 12.4 H RBC 4.70 Hgb 13.7 Hct 40.0 MCV 85.1 MCH 29.1 MCHC 34.3 RDW 12.6 Plt Count 521 H MPV 8.8 L Immature Gran % (Auto) 0.4 Neut % (Auto) 83.8 H Lymph % (Auto) 12.9 L [place] % (Auto) 2.7 Eos % (Auto) 0.0 Baso % (Auto) 0.2 Lymph # (Auto) 1.6 [place] # (Auto) 0.3 Eos # (Auto) 0.0 Baso # (Auto) 0.0 Abs Immat Gran (auto) 0.05 H Absolute Neuts (auto) 10.4 H Absolute Nucleated RBC 0.000 Nucleated RBC % (auto) 0.0 Sodium 136 Potassium 3.7 Chloride 102 Carbon Dioxide 21 L Anion Gap 17 BUN 7 L Creatinine 0.70 Estim Creat Clear Calc 126.7 Estimated GFR > 60 Random Glucose 155 H Estimat Average Glucose 128 Hemoglobin A1c % 6.1 H Lactic Acid Calcium 9.8 Total Bilirubin 0.6 AST 18 ALT 22 Alkaline Phosphatase 127 H Total Protein 8.6 H Albumin 4.4 Lipase 13 Urine Color Yellow Urine Appearance Cloudy Urine pH 8.0 Ur Specific Bow 1.015 Urine Protein 100 (2+) H Urine Glucose (UA) Negative Urine Ketones Trace Urine Blood Large (3+) H Urine Nitrite Positive H Ur Leukocyte Esterase Negative Urine RBC >20 H Urine WBC 21-50 H Ur Squamous Epith Cells 3-5 Urine Bacteria 3+ Hyaline Casts 0-2 Influenza Type A (PCR) NEGATIVE Influenza Type B (PCR) NEGATIVE RSV RNA Qual (PCR) NEGATIVE SARS-CoV-2 RNA (RT-PCR) NEGATIVE Blood Type Antibody Screen 01/24/24 01/25/24 10:59 06:59 WBC RBC Hgb Hct MCV MCH MCHC RDW Plt Count MPV Immature Gran % (Auto) Neut % (Auto) Lymph % (Auto) [place] % (Auto) Eos % (Auto) Baso % (Auto) Lymph # (Auto) [place] # (Auto) Eos # (Auto) Baso # (Auto) Abs Immat Gran (auto) Absolute Neuts (auto) Absolute Nucleated RBC Nucleated RBC % (auto) Sodium 137 Potassium 3.1 L Chloride 105 Carbon Dioxide 24 Anion Gap 11 L BUN 6 L Creatinine 0.74 Estim Creat Clear Calc 119.3 Estimated GFR > 60 Random Glucose 139 H Estimat Average Glucose Hemoglobin A1c % Lactic Acid 1.0 Calcium 8.4 D Total Bilirubin 0.8 AST 12 ALT 14 Alkaline Phosphatase 99 Total Protein 6.7 Albumin 3.4 L Lipase Urine Color Urine Appearance Urine pH Ur Specific Bow Urine Protein Urine Glucose (UA) Urine Ketones Urine Blood Urine Nitrite Ur Leukocyte Esterase Urine RBC Urine WBC Ur Squamous Epith Cells Urine Bacteria Hyaline Casts Influenza Type A (PCR) Influenza Type B (PCR) RSV RNA Qual (PCR) SARS-CoV-2 RNA (RT-PCR) Blood Type O Positive Antibody Screen NEGATIVE Airway Mallampati Class: II TM Dist: <=3cm Neck ROM: Full Loose/Missing/Broken Teeth: No Heart: rrr Lungs: cta Assessment and Plan Assessment Anesthesia Assessment: Anesthesia Plan Discussed and Chart Reviewed Final Anesthetic Review Family History of Problems with Anesthesia: No History of Problems with Anesthesia: No NPO: Yes ASA Class: II Final Preanesthetic Review: No Changes in Pt Med Stat, Meds/Allgs Chart Reviewed, Consent Obtained/Reviewed and Anes Risks/Benef Reviewed Patient Risk: Intermediate Procedure Risk: Intermediate Anesthetic Plan Anesthetic Plan: GA Disposition: Standard PACU
--- NOTE | 2024-01-25 09:54 | MHC.CM.PN ---
pt lives with is independent will not need servies when dcd pcp list [facility] dc plan home no servies
--- NOTE | 2024-01-25 10:17 | PC.NURSE ---
Addendum entered by Julio C Alvarez RN 01/25/24 11:21: ice pack applied to left ring finger. Original Note: left ring finger swollen and red. rings x2 unable to remove with multiple attempts. opto mechanical technician at bedside to cut ring off per Dr. Butt Anesthesiologist.
[2024-01-25 11:18] LABS: HCG Quantitative < 2 mIU/mL
--- NOTE | 2024-01-25 12:53 | P.OP_ITS ---
Operative Note Operative Note Date of Service: 01/25/24 Narrative: Preop diagnosis: Acute cholecystitis Postop diagnosis: Acute cholecystitis, with extensively adherent omentum, severe inflammatory changes surrounding the entire gallbladder Procedure: Laparoscopic cholecystectomy, extensive lysis of adhesions Surgeon: Parish Jack MD education administrative assistant: LATOYA Harry The patient is a 38-year-old female admitted yesterday because of acute cholecystitis. She wanted to proceed with cholecystectomy. She understood the technique of the planned procedure as well as the risks, benefits, and alternatives She was brought to the operating room. She was placed supine under general anesthesia via endotracheal tube. The abdomen was prepped and draped in the usual sterile fashion. A surgical time-out was done. The patient receiving scheduled IV antibiotics. I made a short incision on the supraumbilical margin using a blade 15. This was carried down through the full-thickness of the skin and subcutaneous fat. The patient was noted to have very thick subcutaneous fat that we had to go through until we reached the fascia. The fascia incised. The peritoneum was entered. Through this incision Garza port was introduced. Pneumoperitoneum was introduced to a pressure of 15 mm Hg. From here on the rest of the procedure was done under vision with the laparoscope. We initially used a 10 mm flat scope. With laparoscopic visualization, I inserted the 5/12 minimal port in the epigastric area below the subcostal margin. Two 5 mm ports introduced below the subcostal margin along the anterior axillary line and the midclavicular line. Graspers were placed through these working ports. The patient was placed in head up and [id number] position Examination of the subhepatic space revealed gallbladder to be wrapped with thickened indurated omentum with inflammatory changes. I was able to visualize the fundus and I was able to apply a grasper through this. The gallbladder was very markedly distended so we had to decompress this with an aspirating needle. This allowed us to apply the grasper under towards the fundus and retract the gallbladder cephalad. There was note of marked amounts of thickened, indurated and very inflamed omentum surrounding the entire anterior wall of the appendix. We had to do a lot of careful dissection with the [place] dissector to separate this and stripped the adherent omentum off of the gallbladder wall. We encountered significant oozing because of the acute inflammatory process. We had to cauterize oozing areas of the omentum using electrocautery with the [place] dissector. We proceeded with dissection slowly all the way to the neck. We had to separate more of omentum surrounding the neck and the rest of the gallbladder at both the medial and lateral aspects. This part of the p rocedure took an extended period time. Eventually was able to expose the neck of the gallbladder. We are able to apply a grasper towards the pouch to retract the gallbladder laterally. We had to switch to a 30 degree angled scope to allow better visualization of the neck. We did careful dissection with the [place] dissector to carefully define the neck as well as the cystic duct by doing so was able to actually achieve a critical view of the hepatocystic triangle. We could clearly see the cystic artery as well We continued to confidentially dissect the cystic duct and confirmed this co nfluence with the neck of the gallbladder. At this point therefore we applied clips on the cystic duct with 2 clips applied distally. The cystic duct was transected between clips and scissors. I continued to gently dissect the cystic artery as well until was able to circumferentially define this. I applied clips with 2 clips applied distally and the cystic artery was subtracted between clips with Endo scissors. With traction of the gallbladder away from the liver bed I proceeded to carefully divide to the rest of the hilum with electrocautery spatula. I gently dissected through inflamed tissue until I reached the interface of the gallbladder wall and the liver bed. The gallbladder was very thickened with indurated rind. We had to carefully dissect this with the electrocautery spatu la and the gallbladder off of the liver bed by careful separation of the gallbladder wall from the liver bed using a combination of blunt dissection with the tip of the spatula and electrocautery itself. We continued with this the section to separate the gallbladder off of the liver bed until were able to completely separate the gallbladder The gallbladder was retrieved through an endobag through the umbilical incision. I reinserted all ports and re-insufflated. Examined the subhepatic space. Note of a little oozing from 1 of the divided edges of the omentum which we cauterized I copiously irrigated I observed for hemostasis. In view of the severe inflammatory changes with oozing earlier, I positioned Surgicel packing into the subhepatic space. I observed all 4 quadrants. There was no evidence of any bowel injury or other pathology. I observed the subhepatic space for 2 minutes and there was noted to be adequately hemostatic without any further oozing or significant bleeding Once hemostasis was confirmed, I proceeded to desufflate the port site. I removed all ports under vision with the camera. I removed the umbilical port last. I closed the fascia of the umbilical incision with a [id number] serve 0 stitch Skin closure was achieved on all incisions with Polysorb 4-0 subcuticular running sutures Steri-Strips and dressings were applied. The procedure was then completed The patient tolerated procedure well. There were no immediate complications. Initial and final counts of sponges and instruments were correct. Estimated blood loss was about 100 cc. The patient was extubated without difficulty and transferred to the recovery room with stable vital signs.
[2024-01-25] MEDS: fentaNYL citrate/PF 100 MCG/2 ML VIAL 25 MCG IVPUSH ×3 (13:43→13:53)
[2024-01-25] MEDS: hydrALAZINE HCl 20 MG/ML VIAL 5 MG IVPUSH (14:03)
[2024-01-25] MEDS: Dextrose 5 % and 0.9 % NaCl 1,000 ML 100 ML IVCONT (15:41)
--- NOTE | 2024-01-25 16:38 | PM.EVENT ---
Event Note Date of Service: 01/25/24 Event Note: Seen postop She looks well Complains of pain on incisions but otherwise she says she is comfortable Stable vital signs Incisions clean and dry Explained procedure to her updated Plan to discharge home tomorrow if she continues to do well postop Time Spent With Patient Time: Total time managing care of this patient today ____ minutes.
--- NOTE | 2024-01-25 18:49 | PM.EVENT ---
Event Note Date of Service: 01/25/24 Event Note: Pt remains hypertensive. Add additional 5mg amlodipine now. Continue amlodipine 10mg daily starting tomorrow am. Will need PCP outpt for follow up on hypertension Time Spent With Patient Time: Total time managing care of this patient today ____ minutes.
[2024-01-25] MEDS: Morphine Sulfate 4 MG/ML CARTRIDGE 3 MG IVPUSH (19:18)
[2024-01-26] MEDS: Piperacillin Sodium/Tazobactam 3.375 GM in 0.9 % Sodium Chloride 50 ML IV ×2 (01:43→07:26)
[2024-01-26] MEDS: Dextrose 5 % and 0.9 % NaCl 1,000 ML 100 ML IVCONT (01:48)
[2024-01-26] MEDS: Acetaminophen 325 MG TABLET 650 MG PO (02:18)
[2024-01-26 03:42] VITALS: BP 118/65; PULSE 85; RESP 20; TEMP 36.2; O2SAT 95
[2024-01-26 07:06] LABS: MANUAL DIFF FLAG NO
[2024-01-26 07:23] LABS: Basophils Percent Auto 0.1 % (0-2); Hematocrit 30.1 % (37.0-47.0); Hemoglobin 10.1 g/dl (12.0-16.0); Imm Gran Abs Auto 0.07 X10*3/uL (0.00-0.03); Imm Gran Pct Auto 0.5 % (0.0-0.4); Lymphocytes Absolute Auto 1.9 X10*3/uL (1.2-4.9); Lymphocytes Percent Auto 13.5 % (20-40); Mean Corpuscular HGB Conc 33.6 g/dl (31.0-35.0); Mean Corpuscular Hemoglobin 28.9 pg (27.0-33.0); Mean Platelet Volume 9.4 fL (9.4-12.3); Monocytes Absolute Auto 0.7 X10*3/uL (0.1-1.2); Monocytes Percent Auto 5.2 % (2-11); Neutrophils Absolute Auto 11.3 x10*3/uL (2.0-8.3); Neutrophils Percent Auto 80.7 % (45-73); Platelet Count 432 X10*3/uL (160-400); Red Cell Distribution Width 12.8 % (11.0-16.0); White Blood Count 13.9 X10*3/uL (4.8-10.8)
[2024-01-26 08:00] VITALS: BP 137/85; PULSE 97; RESP 18; TEMP 36.8; O2SAT 94
--- NOTE | 2024-01-26 08:45 | P.PNGS_ITS ---
Subjective Subjective Date of Service: 01/29/24 Interval history: Good pain control Tolerating diet well Describes pain with urination on the suprapubic area Physical Exam 2 Vital Signs: Vital Signs: Last Vital Signs Temp 98.3 F 01/26/24 08:00 Pulse 97 01/26/24 08:00 Resp 18 01/26/24 08:00 BP 137/85 01/26/24 08:00 Pulse Ox 94 01/26/24 08:00 O2 Del Method Room Air 01/26/24 08:00 O2 Flow Rate 2 01/25/24 14:27 BMI result Body Mass Index 30.6 Const: General: comfortable and no acute distress Resp: Effort & Inspection: normal respiratory effort Cardio: Rate: regular rate GI: Other: Dressings dry Palpation (GI): Soft to palpation, not firm and no guarding Objective Data Active Medications Acetaminophen (Acetaminophen 325 Mg Tablet) 650 mg PO Q6H PRN PRN Reason: Pain, Mild (Pain Scale 1-3) Last Admin: 01/26/24 02:18 Dose: 650 mg Documented By: FELIPA Amlodipine Besylate (Amlodipine Besylate 5 Mg Tablet) 5 mg PO DAILY [facility]; Protocol Bacitracin (Bacitracin Oint 14 Gm Tube) 1 appl TOPICAL TID PRN; Protocol PRN Reason: Swelling Hydralazine HCl (Hydralazine Hcl 20 Mg/Ml Vial) 5 mg IVPUSH Q6H PRN; Protocol PRN Reason: SBP > 180 Dextrose/Sodium Chloride (D5ns) 1,000 mls @ 100 mls/hr IVCONT .Q10H [facility] Last Infusion: 01/26/24 07:29 Dose: 0 mls/hr Documented By: HERACLIO Piperacillin Sod/Tazobactam (Sod 3.375 gm/ Sodium Chloride) 50 mls @ 100 mls/hr IV Q6H [facility] Last Infusion: 01/26/24 08:34 Dose: Infused Documented By: HERACLIO Morphine Sulfate (Morphine Sulfate 4 Mg/Ml Cartridge) 3 mg IVPUSH Q3H PRN; Protocol PRN Reason: Pain, Severe (Pain Scale 7-10) Last Admin: 01/25/24 19:18 Dose: 3 mg Documented By: FELIPA Oxycodone HCl (Oxycodone Hcl Immed Release 5 Mg Tablet) 5 mg PO Q4H PRN PRN Reason: Pain, Moderate(Pain Scale 4-6) Sodium Chloride (0.9 % Sodium Chloride Flush 3 Ml Syringe) 3 ml IVFLUSH QSHIFT [facility] Last Admin: 01/26/24 08:01 Dose: Not Given Documented By: HERACLIO Non-Admin Reason: IV Running Labs 01/26/24 05:36 01/25/24 06:59 Labs: Laboratory Results - last 24 hr 01/25/24 01/26/24 06:59 05:36 MCV 86.0 MCH 28.9 MCHC 33.6 RDW 12.8 Plt Count 432 H MPV 9.4 Immature Gran % (Auto) 0.5 H Neut % (Auto) 80.7 H Lymph % (Auto) 13.5 L [place] % (Auto) 5.2 Eos % (Auto) 0.0 Baso % (Auto) 0.1 Lymph # (Auto) 1.9 [place] # (Auto) 0.7 Eos # (Auto) 0.0 Baso # (Auto) 0.0 Abs Immat Gran (auto) 0.07 H Absolute Neuts (auto) 11.3 H Absolute Nucleated RBC 0.000 Nucleated RBC % (auto) 0.0 Beta HCG, Quant < 2 Microbiology Microbiology Results: Microbiology 01/24/24 11:02 Blood Culture - Preliminary Blood - Venous No growth after 24 hours. 01/24/24 10:59 Blood Culture - Preliminary Blood - Venous No growth after 24 hours. 01/24/24 Unknown Urine Culture - Final Urine clean catch - Urine bosch top Procedures Date of Service Date of Service: 01/29/24 Progress Note: A&P Assessment and plan (1) Acute cholecystitis: Status: Acute Assessment and Plan: Status post lap matthew She looks well Incisions clean and dry DC instructions reinforced with patient She feels ready to be discharged Follow-up instructions also explained (2) Urinary tract infection: Status: Acute Assessment and Plan: She had WBCs and nitrites on UA on admission She seems to have symptoms of UTI Plan to send home with Bactrim Discussed with hospitalist service Time Spent With Patient Time: Total time managing care of this patient today ____ minutes. Quality Stroke Does the patient have a stroke diagnosis?: No VTE Prior VTE?: No VTE Risk Level:: Medical - low VTE Device Contraindication: N/A - Device Ordered VTE Drug Contraindication: Treatment Not Indicated
[2024-01-26 09:48] VITALS: BP 137/85
[2024-01-26] MEDS: amLODIPine Besylate 5 MG TABLET PO (09:48)
--- NOTE | 2024-01-26 09:58 | MHC.CM.PN ---
pt dcd home self care
--- NOTE | 2024-01-26 11:06 | HO.POSTANES ---
Post Anesthesia Evaluation Post Anesthesia Evaluation Date of Service: 01/25/24 Vital Signs: Vital Signs Temp Pulse Resp BP Pulse Ox O2 Del Method 01/26/24 09:48 137/85 01/26/24 08:00 98.3 F 97 18 137/85 94 Room Air 01/26/24 03:42 97.2 F 85 20 118/65 95 Room Air 01/25/24 23:25 97.8 F 104 H 18 134/78 95 Room Air Anesthesia: General Endotracheal-GETA Mental Status: Awake Pain Control: Satisfactory Nausea/Vomiting: None Hydration: Adequate Anesthesia-Related Issues: No Anes. Related Issues
--- NOTE | 2024-01-26 15:02 | P.DS_ITS ---
DS: Providers Provider Date of Service: 01/26/24 Date of admission: 01/24/24 13:14 Date of discharge: 01/26/24 Primary care physician: None Physician Attending physician on admission: Parish Jack Consults: 01/24/24 13:17 Consult to Hospitalist Routine Comment: Consulting Provider: Hospitalist Reason For Exam: hypertension, does not see any PCP Attending physician on discharge: Parish Jack DS: Diagnosis Discharge Diagnosis (1) Acute cholecystitis: Status: Acute (2) Urinary tract infection: Status: Acute DS: Summary Hospital Course Hospital Course: HPI AT ADMISSION: Srinivas Flynn is a 38 year old female ER for right upper quadrant pain and tenderness. She says that this started about 01:00 o'clock in the morning. This has been persistent since then. She describes some episodes of vomiting at home. She denies any correlation of the pain with oral intake. In view of the persistence of the pain, she came to the emergency room early this morning. She says she has never had any similar episodes in the past. She does not have any primary care physician, and her blood pressures have been elevated here in the ER. She denies having previous abdominal surgeries. ABD US and CT scan suggestive of acute cholecystitis with gallstones. HOSPITAL COURSE: She was admitted to the surgical service for further treatment of the acute cholecystitis. It was recommended to proceed with laparoscopic possible open cholecystectomy, she agreed. She was added onto the OR schedule for the following day. Her UA here showed nitrites and leukocytes consistent with urinary tract infection however she was asymptomatic. She was started on IV zosyn for the acute cholecystitis which would cover likely jenn for her urinary tract infection. Hospitalist consult was also obtained for medical evaluation as she had not seen a provider in many years and was very hypertensive. She was started on Amlodipine 5mg PO daily to start. On 01/25/24, Laparoscopic cholecystectomy, extensive lysis of adhesions was performed by Dr. Jack without complication. The patient tolerated the procedure well. She had an uncomplicated recovery course. Her BP remained elevated post operatively and her amlodipine dose was increased to 10mg PO daily. On POD#1, she felt well and had good pain control on oral analgesics. She was tolerating a solid diet without nausea or vomiting. She was ambulating without difficulty. Her abdomen was benign with appropriate post op tenderness and clean/intact dressings. She felt ready for discharge to home. She was discharged to home on 01/26/24 in stable condition on a PO course of bactrim for her UTI. She is to follow up in the office in [address] Jack. She is to follow up in the office with her PCP regarding hypertension management. She was discharged on amlodipine 10mg PO daily. Status at Discharge Functional status at discharge: independent ambulation Overall status at discharge: patient is progressing back to baseline Time Attestation Discharge Coordination Time (in mins): 30 Quality: Safe Use of Opioids Does Pt have an Active Cancer Diagnosis on the Problem List?: No Quality: Stroke Does the patient have a stroke diagnosis?: No Physical Exam Vital Signs: Vital Signs: Last Vital Signs Temp 98.3 F 01/26/24 08:00 Pulse 97 01/26/24 08:00 Resp 18 01/26/24 08:00 BP 137/85 01/26/24 09:48 Pulse Ox 94 01/26/24 08:00 O2 Del Method Room Air 01/26/24 08:00 O2 Flow Rate 2 01/25/24 14:27 BMI result Body Mass Index 30.6 Const: General: comfortable, no acute distress and alert Orientation/consciousness: patient oriented x3 Resp: Effort & Inspection: normal respiratory effort GI: Inspection: No distended Palpation (GI): Soft to palpation, Tenderness to palpation present (GI) (mild incisional), no guarding and not rigid Skin: General skin exam: no rashes or lesions noted and no jaundice Neuro: General: patient oriented x3 DS: Data Data Completed and Pending Completed studies during hospitalization [Text1]: Pending at discharge 01/25/24 12:41 Surgical [PTH] Routine Labs on day of discharge: Laboratory Results - last 24 hr 01/26/24 05:36 WBC 13.9 H RBC 3.50 L D Hgb 10.1 L D Hct 30.1 L D MCV 86.0 MCH 28.9 MCHC 33.6 RDW 12.8 Plt Count 432 H MPV 9.4 Immature Gran % (Auto) 0.5 H Neut % (Auto) 80.7 H Lymph % (Auto) 13.5 L Grainger % (Auto) 5.2 Eos % (Auto) 0.0 Baso % (Auto) 0.1 Lymph # (Auto) 1.9 Grainger # (Auto) 0.7 Eos # (Auto) 0.0 Baso # (Auto) 0.0 Abs Immat Gran (auto) 0.07 H Absolute Neuts (auto) 11.3 H Absolute Nucleated RBC 0.000 Nucleated RBC % (auto) 0.0 Preliminary micro results at discharge 01/24/24 11:02 Blood Culture - Preliminary Blood - Venous No growth after 48 hours. 01/24/24 10:59 Blood Culture - Preliminary Blood - Venous No growth after 48 hours. Discharge Plan Discharge Anticipated Discharge Date/Time: 01/26/24 11:18 Patient Disposition: Home, Self-Care Discharge Diagnosis: acute cholecystitis Referrals: Parish Jack MD [Physician] - 2 Weeks Physician,None [Primary Care Provider] - 1 Week Discharge Medications: New oxycodone-acetaminophen [Percocet] 5-325 mg tablet 1 tab PO Q4-6H PRN (Reason: pain) Qty: 20 0RF Rx Instructions: Partial Fill upon patient request. ibuprofen 600 mg tablet 600 mg PO Q6H PRN (Reason: pain) Qty: 30 0RF sulfamethoxazole-trimethoprim [Bactrim DS] 800-160 mg tablet 1 tab PO BID Qty: 6 0RF amlodipine 5 mg Tablet 5 mg PO DAILY Qty: 90 0RF Protocol: Hold for SBP< HOLD for SBP < : 90 Discontinued ibuprofen 200 mg Tablet 400 mg PO Q8H PRN (Reason: Pain) Discharge Orders: Discharge Order (Routine); Ordered 01/26/24 Ordered By: Parish Jack Diet: Low fat, low cholesterol Activity on Discharge: No heavy lifting Stand Alone Forms: Patient Portal Discharge page Print Language: Indonesian Activity Restrictions/Additional Instructions: If the incision area is tender, you may apply an ice pack for short intervals (No more than 20 minutes on, followed by at least 20 minutes off). Do not apply heat. Do not use creams, lotions, or topical antibiotics. These can cause infection or allergic reaction. Ok to shower 24 hours after your surgery. Remove bandaids in 2 days and replace. You have steri strips (small white cloth strips) covering your incision- these will fall off ~1 week. Follow up in office with Dr. Jack in 2 weeks. ([phone]) No heavy lifting (>10-20lbs) or strenuous activity! Call Your Doctor If: -Your temperature exceeds 101.5? F -You experience excessive pain or swelling -You have an unexpected reaction to medication -You have excessive bleeding -You experience continued vomiting/nausea -Your incision begins to separate -Your incision shows signs of infection such as increased redness, swelling, excessive pain, drainage (light blood or clear fluid is normal) or heat Care Plan Goals: Return to baseline health and resume normal activities following recovery period. Health Concerns: acute cholecystitis UTI HTN Plan of Treatment: s/p laparoscopic cholecystectomy Hypertension- take amlodipine 5mg daily. Blood pressure goal <140/90. Please record blood pressure at home and follow up with PCP for dose titrations if needed Assessment: Doing well post op. Discharge Date/Time: 01/26/24 10:00
== END 2024-01-26 10:00 | disposition home or self-care (01) | DRG 263 ==
LOC: HO.ED 09:02 → HO.EDOVER 13:21 → HO.S3 15:53
PROVIDERS: Physician Assistant; Physician Assistant Surgical; Student in an Organized Health Care Education/Training Program; Admitting Provider Surgery; Emergency Provider Emergency Medicine; Visit Provider Surgery
PROC: 0FT44ZZ Resection of Gallbladder, Percutaneous Endoscopic Approach (ICD-10-PCS; CPT 47562; principal; 2024-01-25 10:30)
DX: K81.0 Acute cholecystitis (principal); I10 Essential (primary) hypertension; K82.8 Other specified diseases of gallbladder; N39.0 Urinary tract infection, site not specified; Z20.822 Contact with and (suspected) exposure to COVID-19; Z87.891 Personal history of nicotine dependence
CPT/HCPCS: 47562; 49329; 0241U; 36415; 74176; 76705; 80053; 81001; 83036; 83605; 83690; 84702; 85025; 86850; 86900; 86901; 87040; 87086; 88304; 99221; 99285; J0360; J0696; J1100; J1170; J1885; J2250; J2270; J2405; J2543; J2704; J2795; J3010

== ENCOUNTER → 2024-01-24 13:14 | Outpatient (BNV) | payer OTHER, SELFPAY | PROVIDERS: Admitting Provider Surgery; Emergency Provider Emergency Medicine; Visit Provider Student in an Organized Health Care Education/Training Program | DX: I10 Essential (primary) hypertension (principal); K81.0 Acute cholecystitis | CPT/HCPCS: 99222; 99499 ==

== ENCOUNTER → 2024-01-24 13:14 | Outpatient (BNV) | payer OTHER, SELFPAY | PROVIDERS: Admitting Provider Surgery; Emergency Provider Emergency Medicine; Visit Provider Physician Assistant Surgical | DX: K81.0 Acute cholecystitis (principal); N30.01 Acute cystitis with hematuria; N39.0 Urinary tract infection, site not specified | CPT/HCPCS: 47562; 99024; 99222; 99499 ==

== ENCOUNTER 2024-02-08 13:49 | Outpatient (AMB) | payer OTHER, SELFPAY ==
--- NOTE | 2024-02-08 13:51 | MHC.OFFVIS ---
Intake Visit Reasons: s/p lap cholecystectomy Intake Note: This patient presents for a post-op assessment status post laparoscopic cholecystectomy. Patient c/o; reports RLQ abdominal pain, reports bruising, reports last had some blueberry ice cream and noticed stools were fluorescent green. 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 She had undergone laparoscopic cholecystectomy last January 25, 2024 for acute cholecystitis. She tolerated procedure well She says she is feeling well denies any significant complaints. She has good oral intake. [facility] Medical History (Updated 02/08/24 @ 14:32 by Parish Jack MD) Acute cholecystitis Urinary tract infection Surgical History History of laparoscopic cholecystectomy (~01/25/24) Social History Household Members: Spouse and Children Housing: House Do you presently have visiting nurse or other home services: No Patient Tobacco Use Status: Former Tobacco user Tobacco use type: Cigarette Second Hand Smoke Exposure: No service: No Review of Systems Const Denies chills and Denies fever(s) Card Denies chest pain, Denies dyspnea and Denies dyspnea on exertion Resp Denies cough, Denies dyspnea and Denies dyspnea on exertion GI Denies hematochezia and Denies change in bowel habits Denies hematuria Musc Denies back pain and Denies limited range of motion Neuro Denies focal weakness and Denies convulsions Psych Denies depression and Denies mood swings Physical Exam Eyes Other: Anicteric sclerae Resp Effort & Inspection: normal respiratory effort GI Other: All incisions are well healed Palpation (GI): Soft to palpation, not firm, nontender and no guarding Assessment & Plan Assessment & Plan (1) Acute cholecystitis: Code(s): K81.0 - Acute cholecystitis Category: Medical Plan: Status post laparoscopic cholecystectomy. She is doing very well. All incisions are well healed. She is good oral intake and denies significant complaints Her path report shows acute cholecystitis She can follow up on a p.r.n. basis. Coding Level of Care Code Global (86164) Diagnoses Acute cholecystitis K81.0
== END 2024-02-08 14:49 | disposition home or self-care (01) ==
PROVIDERS: Visit Provider Surgery
DX: K81.0 Acute cholecystitis (principal)
CPT/HCPCS: 99024

== ENCOUNTER → 2024-02-08 13:49 | Outpatient (BNVA) | payer OTHER, SELFPAY | PROVIDERS: Visit Provider Surgery ==

== ENCOUNTER 2024-02-22 10:37 | Outpatient (AMB) | payer OTHER, SELFPAY ==
--- NOTE | 2024-02-22 10:46 | A.OFFVIS_ITS ---
Vital Signs 02/22/24 10:55 Weight 201 lb Intake Visit Reasons: s/p lap matthew, LLQ sharp pain Intake Note: This patient presents for left lower quadrant pain status post laparoscopic cholecystectomy. Patient c/o; reports sharp pain when inhaling but has ease off and since Thursday02/21/2024 has felt much better, reports protruding stitch epigastric region. 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 She continues to do well. She denies significant GI complaints. I had actually seen her 2 weeks ago for postop visit. She wanted to be seen again because she says she sees a stitch protruding from her epigastric incision and that she had an episode of pain on the incisions on the right side 2 weeks ago. This has since resolved. [facility] Medical History Acute cholecystitis Urinary tract infection Surgical History (Updated 02/22/24 @ 11:33 by Parish Jack MD) Status post laparoscopic cholecystectomy History of laparoscopic cholecystectomy (~01/25/24) Social History Household Members: Spouse and Children Housing: House Do you presently have visiting nurse or other home services: No Patient Tobacco Use Status: Former Tobacco user Tobacco use type: Cigarette Second Hand Smoke Exposure: No service: No Review of Systems Const Denies chills and Denies fever(s) Physical Exam Eyes Sclerae: sclerae normal GI Other: All incisions are well healed Palpation (GI): Soft to palpation, not firm and nontender Assessment & Plan Assessment & Plan (1) Status post laparoscopic cholecystectomy: Code(s): Z90.49 - Acquired absence of other specified parts of digestive tract Category: Surgical Plan: She continues to do well postoperatively. I cut the stitch using out of epigastric incision with scissors She denies any abdominal pain at this time and her incisions are well healed She can follow up with me on a p.r.n. basis. Coding Level of Care Code Global (54126) Diagnoses Status post laparoscopic cholecystectomy Z90.49
== END 2024-02-22 11:34 | disposition home or self-care (01) ==
PROVIDERS: Visit Provider Surgery
DX: Z90.49 Acquired absence of other specified parts of digestive tract (principal)
CPT/HCPCS: 99024

== ENCOUNTER → 2024-02-22 10:37 | Outpatient (BNVA) | payer OTHER, SELFPAY | PROVIDERS: Visit Provider Surgery ==

== ENCOUNTER 2024-03-14 08:15 | Outpatient (AMB) | payer OTHER, SELFPAY ==
[2024-03-14 08:22] VITALS: BP 132/86; PULSE 76; O2SAT 98; BMI 30.7
--- NOTE | 2024-03-14 08:22 | A.OFFPC_ITS ---
Vital Signs 03/14/24 08:22 03/14/24 08:59 Height 5 ft 8 in Weight 202 lb 4 oz BMI 30.7 BP 132/86 136/84 Blood Pressure Location Lt brachial Rt brachial Position Sitting Sitting Pulse 76 Pulse Source Pulse Oximeter Pulse Oximetry (%) 98 Oxygen Delivery Method Room Air Intake Visit Reasons: Establish Care Allergies No Known Allergies Allergy (Verified 03/14/24 08:35) Medication List - Last Reconciled 03/14/24 by Mary Alice Vang [facility]- amlodipine 5 mg See Protocol PO DAILY ibuprofen 600 mg PO Q6H PRN Tobacco use date assessed: 03/14/24 Dental Screening Dental Screen Date: 03/14/24 Did you have a dental visit in the last 12 months?: Yes Did you have a dental problem in the last 6 months where you did not have access to dental care?: No Was dental information given to patient?: Patient has dentist HPI HPI Comments History of Present Illness Details 38-year-old female with prediabetes, hyp ertension, right renal calculi, diverticulosis, anemia, obesity Status post lap matthew Health Maintenance: ? Colon ? Mammo ordered today ? DEXA ? PAP refered today to [facility] ? Tdap today Specialists: [facility] Hemoglobin A1c 6.1% 01/2024 Here today to est care & for a CPE Hospitalized 01/2024 at [facility] for acute matthew s/p lap matthew works up reviewed. found to have htn, d/c home on norvasc 5 mg. has been mostly compliant however has admitted to forgetting from time to time and has also run out. without meds for first time today. NSAID listed on Medrec - reviewed today, only taking very sparingly. Reports long standing hx of anemia - had endo in the past, about 20 years ago. denies overt bleeding Admits poor follow through- has so much anxiety r/t her health and therefore avoids. saw family go to hospital and then never come home... dad went to doctor 6 years ago and they found liquid in lungs and in 2-3 weeks he was declines meds to help with anxiety but open to counseling in the future. 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 Monitor BP at home, goal < 130/80 Chk labs today Refer to [facility] & Bariatrics Tdap today Mammo ordered RTO in 4 months for fu HTN, sooner as needed. [facility] Medical History Acute cholecystitis Urinary tract infection Surgical History History of laparoscopic cholecystectomy (~01/25/24) Social History Household Members: Spouse and Children Housing: House Do you presently have visiting nurse or other home services: No Patient Tobacco Use Status: Former Tobacco user Tobacco use type: Cigarette e-Cigarette/Vaping Use: Never Used Second Hand Smoke Exposure: No service: No Current occupational status: employed Current occupation: [employer] ([employer]) Cognitive needs: No Hearing needs: No Vision needs: No Questionnaire PHQ-9 Over the last 2 weeks, how often have you been bothered by any of the following problems? 1. Little interest or pleasure in doing things: not at all 2. Feeling down, depressed, or hopeless: not at all 3. Trouble falling or staying asleep, or sleeping too much: not at all 4. Feeling tired or having little energy: not at all 5. Poor appetite or overeating: not at all 6. Feeling bad about yourself - or that you are a failure or have let yourself or your family down: not at all 7. Trouble concentrating on things, such as reading the newspaper or watching television: not at all 8. Moving or speaking so slowly that other people could have noticed. Or the opposite - being so fidgety or restless that you have been moving around a lot more than usual: not at all 9. Thoughts that you would be better off or of hurting yourself in some way: not at all Total score: 0 Depression Screening Interpretation: Negative Depression Screening Done: Yes 15679 - PHQ-9 Billing: Yes Source: Developed by Drs. Chavez Villa, Kayla Sharif, Luigi García and colleagues, with an educational tony from [email or web address]. Thrive Questionnaire Date Thrive assessed: 03/14/24 I am a: Patient What is your living situation today?: I have a steady place to live Within the past 12 months, did the food you bought not last and you didn't have the money to get more?: Never true Within the past 12 months, did you worry whether your food would run out before you got money to buy more?: Never true Do you have trouble paying for medicines?: No Do you have trouble getting transportation to medical appointments?: No Do you have trouble paying your heating and electricity bill?: No Do you have trouble taking care of your child, family member or friend?: No Do you have trouble with day-to-day activities such as bathing, preparing meals, shopping, managing finances, etc.?: No Are you currently unemployed and looking for a job?: No Are you interested in more education?: No Currently or been in a relationship where the following occur: no concerns reported THRIVE Score: 0 AUDIT C Alcohol Use Questionnaire (AUDIT-C) 1. How often do you have a drink containing alcohol?: Monthly or less 2. How many drinks containing alcohol do you have on a typical day when you are drinking?: 1 or 2 3. How often do you have six or more drinks on one occasion?: Never Total Score: 1 Score Reviewed/Action Taken: Yes PADDY-7 AMB Questionnaire PADDY-7 Date PADDY - 7 assessed: 03/14/24 Feeling nervous, anxious, or on edge: 0 = Not at all Not being able to stop or control worryin = Not at all Worrying too much about different things: 0 = Not at all Trouble relaxin = Not at all Being so restless that it is hard to sit still: 0 = Not at all Becoming easily annoyed or irritable: 0 = Not at all Feeling afraid as if something awful might happen: 0 = Not at all Total PADDY-7 score (0-4 normal; 5-9 mild; 10-14 moderate; 15-21 severe): 0 Source: Developed by Drs. Chavez Villa, Kayla Sharif, Luigi García and colleagues, with an educational tony from [email or web address]. PADDY-7 Assessment Billing PADDY-7 Assessment Tool: PADDY-7 Assessment 14479 Review of Systems Const Details: Constitutional: Denies fever. Skin: Denies rash. Eye: Denies eye pain. ENMT: Denies sore throat and nasal congestion. Respiratory: Denies shortness of breath and cough. Gastrointestinal: Denies nausea, vomiting or abdominal pain. Cardiovascular: Denies chest pain and syncope. Genitourinary: Denies dysuria. Musculoskeletal: Denies back pain and extremity pain. Neurologic: Denies headaches, confusion, and weakness. Psychiatric: Denies suicidal thoughts and substance abuse. Allergy/ Immunologic: Denies impaired immunity. Physical exam (Primary Care) Vital Signs: Last Vital Signs Pulse 76 03/14/24 08:22 BP 132/86 03/14/24 08:22 Pulse Ox 98 03/14/24 08:22 Oxygen Delivery Method Room Air 03/14/24 08:22 BMI result Body Mass Index 30.7 BMI Assessment/Plan discussion: High BMI High, discussed plan: lifestyle Tobacco/Smoking Status: Tobacco use Status Tobacco use date assessed 03/14/24 03/14/24 08:28 Patient Tobacco Use Status Former Tobacco user 03/14/24 08:28 Tobacco use type Cigarette 03/14/24 08:28 e-Cigarette/Vaping Use Never Used 03/14/24 08:28 PHQ-9: PHQ-9 Score PHQ-9: Total score 0 03/14/24 08:35 Depression Screening Interpretation: Negative Thrive Assessment: Date of Thrive Assessment Date Thrive assessed 03/14/24 03/14/24 08:42 Currently or been in a relationship where the following occur: no concerns reported Const Other: General: Well developed, well nourished, in no acute distress. Appears stated age. Head: Normocephalic, atraumatic. Eyes: Pupils are equal, round and reactive to light and accommodation. Conjunctivae are clear. Vision grossly normal. Ears: TMs clear AU, EACS WNL Nose: Patent, without discharge. Mouth: There are no ulcers or lesions noted. No inflammation, no post nasal drip, no plaques nor exudates. Neck: Supple, no adenopathy or thyromegaly. Lungs: Clear to auscultation bilaterally. No rales, rhonchi or wheeze noted. Good air flow in all berman. Heart: Regular rate and rhythm. No murmurs, click, rubs or gallops are noted. Complained of feeling mildly dizzy with pulmonary exam and with positional changes. Short-lived and self-limited. Abdomen: Bowel sounds present in all quadrants. The abdomen is soft, with no masses or organomegaly noted. No hernias are noted. Mild pain over transverse lower abdomen. Complains of feeling gassy. Musculoskeletal: Joints are nontender, without swelling, redness, or effusions. Range of motion is observed to be normal. Pulses: Peripheral pulses are equal and palpable bilaterally. Extremities: No clubbing, cyanosis nor edema is noted. Neurologic: Gait and station normal. Cranial Nerves 2-12 intact. Motor strength grossly symmetrical and intact. No sensory loss. Balance normal. Skin: No rashes, ulcers, or lesions noted. Turgor is good. Skin color is good. Hair and nails are without abnormalities. Psych: Normal eye contact, affect and mood appropriate, and normal interactions. Patient is alert and appropriate to context. Immunizations Boostrix Tdap 2.5 Lf unit-8 mcg-5 Lf/0.5 mL intramuscular syringe Performing Provider: EDITH Barton Performing Location: [facility] Administered by: Shaylee Ridley CMA on 03/14/24 08:50 Dose Route Admin Location Dispensed Lot Number Expiration Date NDC Underwear Hemmer 0.5 mL IM Left Tricep 0.5 mL [id number] 04/29/26 [id number] Traction VIS Given Date VIS Provided VIS Publication Date 03/14/24 Single Vaccine 21 Eligibility Eligibility Date Funding Source Not [facility] Eligible 03/14/24 Private Assessment and Plan Assessment & Plan (1) Encounter for general adult medical examination without abnormal findings: Code(s): Z00.00 - Encounter for general adult medical examination without abnormal findings (2) Obesity (BMI 30-39.9): Code(s): E66.9 - Obesity, unspecified (3) HTN (hypertension): Code(s): I10 - Essential (primary) hypertension Qualifiers: Hypertension type: primary hypertension Qualified Code(s): I10 - Essential (primary) hypertension (4) Anemia: Code(s): D64.9 - Anemia, unspecified Qualifiers: Anemia type: unspecified type Qualified Code(s): D64.9 - Anemia, unspecified (5) Prediabetes: Code(s): R73.03 - Prediabetes (6) Screening mammogram for breast cancer: Code(s): Z12.31 - Encounter for screening mammogram for malignant neoplasm of breast (7) Screening for cervical cancer: Code(s): Z12.4 - Encounter for screening for malignant neoplasm of cervix Orders: Orders Hemoglobin A1c Today D64.9 - Anemia, unspecified, E66.9 - Obesity, unspecified, I10 - Essential (primary) hypertension, R73.03 - Prediabetes IRON PROFILE Today D64.9 - Anemia, unspecified, E66.9 - Obesity, unspecified, I10 - Essential (primary) hypertension, R73.03 - Prediabetes TDaP Immunization Today Z23 - Encounter for immunization MM tomosynthesis screening BI Today Z12.31 - Encounter for screening mammogram for malignant neoplasm of breast Lipid Panel Today D64.9 - Anemia, unspecified, E66.9 - Obesity, unspecified, I10 - Essential (primary) hypertension, R73.03 - Prediabetes Microalbumin, Random (w Creat) Today D64.9 - Anemia, unspecified, E66.9 - Obesity, unspecified, I10 - Essential (primary) hypertension, R73.03 - Prediabetes Complete Blood Count no Diff Today D64.9 - Anemia, unspecified, E66.9 - Obesity, unspecified, I10 - Essential (primary) hypertension, R73.03 - Prediabetes Vitamin B12 and Folate Today D64.9 - Anemia, unspecified, E66.9 - Obesity, unspecified, I10 - Essential (primary) hypertension, R73.03 - Prediabetes TSH reflex Free T4 Today D64.9 - Anemia, unspecified, E66.9 - Obesity, unspecified, I10 - Essential (primary) hypertension, R73.03 - Prediabetes Vitamin D 25-OH Total Today D64.9 - Anemia, unspecified, E66.9 - Obesity, unspecified, I10 - Essential (primary) hypertension, R73.03 - Prediabetes Comprehensive [place]. Panel Fast Today D64.9 - Anemia, unspecified, E66.9 - Obesity, unspecified, I10 - Essential (primary) hypertension, R73.03 - Prediabetes Referrals JAR CAPPER Referral Z12.4 - Encounter for screening for malignant neoplasm of cervix Bariatric Surgery Referral E66.9 - Obesity, unspecified, R73.03 - Prediabetes Medications: Refilled amlodipine 5 mg PO DAILY 90 tabs 1RF Patient Instructions: RTO in 4 months to f/u on HTN, sooner as needed. Plan: restart norvasc 5 mg po QD. Monitor BP at home, goal < 130/80 Chk labs today Refer to [facility] & Bariatrics Tdap today Mammo ordered RTO in 4 months for fu HTN, sooner as needed. Walk-In Care (Urgent Care): We Make it Easy Walk-in for urgent medical issues such as: ? Seasonal Allergies ? Insect Bites ? Cough ? Diarrhea ? Acute Asthma Attacks ? Back, Knee or Joint Pain ? Ear Infection ? Fever without a Rash ? Headaches ? Nausea ? [place] Eye, Rash or Skin Irritation ? Sore Throat ? Sports Physicals ? Vomiting Most insurances are accepted. Patients do not need to be part of the [facility] to seek care at the walk-in clinic. Locations [address] [place] [address] , [place] [address] ? [phone] [facility] Walk-In Care in [place] provides services to ages 18 and over. Open Thursday-Thursday: 8 a.m. to 5 p.m. and Thursday: 9 a.m. to 3 p.m.* *Hours may vary due to staffing availability. To confirm Walk-In Care hours in [place], please call [phone]. [address] [place] [address] ? [phone] [facility] Walk-In Care in [place] provides services to ages 12 and over. Open Thursday-Thursday: 8 a.m. to 5 p.m. Hours may vary due to staffing availability. To confirm Walk-In Care hours in [place], please call [phone]. LABORATORY SERVICES: [facility] Lab ? Primary Location [address] [place] [address] Thursday through Thursday 6:00 AM ? 5:00 PM Thursday 7:00 AM ? 11:00 AM* [phone] The [facility] Lab is centrally located near the front entrance of the [facility] for easy outpatient access. Convenient parking is provided for outpatients. *Hours may vary due to staffing availability. To confirm Laboratory hours for any location, please call [phone]. Offsite Location For your convenience, we offer offsite laboratory draw stations at the following locations: [address] [place], [place] [address]e ? [facility] [address] [facility], [address], [place] Thursday through Thursday 7:30 AM ? 1:00 PM* [phone] *Hours may vary due to staffing availability. To confirm Laboratory hours for any location, please call [phone]. [place] ? [facility] [address] [facility], [place] Thursday through Thursday 6:00 AM ? 3:30 PM* Thursday 6:30 AM ? 3 PM* [phone] *Hours may vary due to staffing availability. To confirm Laboratory hours for any location, please call [phone]. [address] [facility] Thursday through Thursday 7:30 AM ? 4:00 PM* [phone] *Hours may vary due to staffing availability. To confirm Laboratory hours for any location, please call [phone] [place] [address] Thursday through 9:00 AM ? 4:00 PM* *Hours may vary due to staffing availability. To confirm Laboratory hours for any location, please call [phone]. Appointments are not necessary. Walk-ins are welcome. Like all the departments throughout the [facility], our Lab undergoes frequent reviews to ensure the quality and accuracy of test results, and our staff takes special pride in its status as a nationally accredited facility. Patient Portal: ONE PATIENT. ONE RECORD. BETTER CARE. [facility] has a fully integrated, cutting- edge mobile electronic health information system that has revolutionized the way we care for our patients and manage our organization. This system improves communication and coordination enabling us to provide safe, higher-quality care, and an overall positive experience for staff and patients. Our first priority, as always, is to deliver the highest quality care possible. The system is running in the background supporting that priority. This portal is for all [facility] services and practices. If you are experiencing any technical difficulties with enrolling or logging into the Patient Portal please complete the [facility] Patient Portal Technical Support Form. [facility] now offers a new secure on-line interactive tool for patients to review their health information ? Patient Portal. This interactive web portal will enable patients and their families to take an active role in their care by providing easy, secure access to their health information via the internet. The Patient Portal provides patients with instant access to their health information, including laboratory results, medications, allergies, demographic information, visit history, and more. In addition to managing their own care, parents and health care proxies with authorized consent will appreciate the ability to access the records of those individuals for whom they provide care. Please note: if you wish to gain access (Proxy) to another patient?s portal, you will be required to come to the Medical Records Department in person at [facility]. Both the patient giving proxy access and the proxy will need to provide photo identification and complete the appropriate authorization. The Patient Portal also allows track their appointments online. The [facility] Patient Portal also saves patients time by allowing them to submit updates to their demographic and contact information prior to their visits. Po rtal email notifications will also alert patients to any new activity on their portal, such as test results and new appointments. In order to initially enroll in the [facility] Patient Portal, you will need to enter some required information including the following: ? your [facility] Medical Record number ? your personal home email address ? name ? date of Please note: In order to enroll in the [facility] Patient Portal, we need to have your email address on file in your electronic medical record. The email address needs to be specific for one person (yourself) in order for your Portal enrollment to be successful. You can update your email address in person with our Registration staff when you are registering for a hospital visit. Otherwise, you will need to come to the Health Information Management (Medical Records) Department at [facility]. We are open from Thursday ? Thursday from 7:30 a.m. ? 4:30 p.m. You will be required to present a photo id. Once you have successfully enrolled in the Patient Portal, you will receive a one-time user id and password for the Portal, sent to your email address. This will allow you to log into the Patient Portal within 99 hrs and reset your own logon id and password, and define personal security questions. Once your permanent login and password have been set, you can log into the [facility] Patient Portal at any time via the blue button above or from the Portal Logon button on any page of the [facility] website. [facility] encourage all of our patients to enroll in Patient Portal as it presents a valuable opportunity for patients and their families to actively participate in their care and stay healthy Welcome to [facility]. We look forward to working with you. Health screenings for women You should visit your health care provider from time to time, even if you are healthy. The purpose of these visits is to: Screen for medical issues Assess your risk for future medical problems Encourage a healthy lifestyle Update vaccinations and other preventive care services Help you get to know your provider in case of an illness Information Even if you feel fine, you should still see your provider for regular checkups. These visits can help you avoid problems in the future. For example, the only way to find out if you have high blood pressure is to have it checked regularly. High blood sugar and high cholesterol levels also may not have any symptoms in the early stages. A simple blood test can check for these conditions. There are specific times when you should see your provider or receive specific health screenings. The [place] Preventive Services Task Force publishes a list of recommended screenings. Below are screening guidelines for women ages 18 to 39. BLOOD PRESSURE SCREENING Your blood pressure should be checked at least once every 3 to 5 years if: Your blood pressure is in the normal range (top number less than 120 mm Hg and bottom number less than 80 mm Hg) You don't have risk factors for high blood pressure Ask your provider if you need your blood pressure checked more often if: The top number is 120 to 129 mm Hg or the bottom number is 70 to 79 mm Hg You have diabetes, heart disease, kidney problems, are overweight, or have certain other health conditions You have a first-degree relative with high blood pressure You are Black You had high blood pressure during a If the top number is 130 mm Hg or greater or the bottom number is 80 mm Hg or greater, this is considered stage 1 hypertension. Schedule an appointment with your provider to learn how you can reduce your blood pressure. Watch for blood pressure screenings in your area. Ask your provider if you can stop in to have your blood pressure checked. BREAST CANCER SCREENING Experts do not agree about the benefits of breast self-exams in finding breast cancer or saving lives. Talk to your provider about what is best for you. A screening mammogram is not recommended for most women under age 40. Your provider may discuss and recommend mammograms, MRI scans, or ultrasounds if you have an increased risk for breast cancer, such as: A mother or sister who had breast cancer at a young age (most often starting screening earlier than the age the close relative was diagnosed) You carry a high-risk genetic marker CERVICAL CANCER SCREENING Cervical cancer screening should start at age 21 years unless your provider advises otherwise. After the first test: Women ages 21 through 29 should have a Pap test every 3 years. Exoprts do not agree on whether HPV testing is recommended for this age group. Women ages 30 through 65 should be screened with either a Pap test every 3 years or the HPV test every 5 years or both tests every 5 years (called cotesting ). Women who have been treated for precancer (cervical dysplasia) should continue to have Pap tests for 20 years after treatment or until age 65, whichever is longer. If you have had your uterus and cervix removed (total hysterectomy), and you have not been diagnosed with cervical cancer or precancer (high grade cervical neoplasia), you do not need cervical cancer screening. CHOLESTEROL SCREENING Cholesterol screening should begin at: Age 45 for women with no known risk factors for coronary heart disease Age 20 for women with known risk factors for coronary heart disease Repeat cholesterol screening should take place: Every 5 years for women with normal cholesterol levels More often if changes occur in lifestyle (including weight gain and diet) More often if you have diabetes, heart disease, kidney problems, or certain other conditions DIABETES SCREENING You should be screened for diabetes starting at age 35 and then repeated every 3 years if you have no risk factors for diabetes. Screening may need to start earlier and be repeated more often if you have other risk factors for diabetes, such as: You have a first degree relative with diabetes. You are overweight or have obesity. You have high blood pressure, prediabetes, or a history of heart disease. Screening for diabetes should be done if you are planning to become and you are overweight and have other risk factors such as high blood pressure. DENTAL EXAM Go to the dentist once or twice every year for an exam and cleaning. Your dentist will evaluate if you need more frequent visits. EYE EXAM Have an eye exam every 5 to 10 years before age 40. If you have vision problems, have an eye exam every 2 years or more often if recommended by your provider. You should have an eye exam that includes an examination of your retina (back of your eye) at least every year if you have diabetes. IMMUNIZATIONS Commonly needed vaccines include: Flu shot: get one every year. COVID-19 vaccine: ask your provider what is best for you. Tetanus-diphtheria and acellular pertussis (Tdap) vaccine: have one at or after age 19 as one of your tetanus-diphtheria vaccines if you did not receive it as an adolescent. Tetanus-diphtheria: have a booster (or Tdap) every 10 years. Varicella vaccine: receive 2 doses if you never had chickenpox or the varicella vaccine. Hepatitis B vaccine: receive 2, 3, or 4 doses, depending on your exact circumstances. Measles, mumps, and rubella (MMR) vaccine: receive 1 to 2 doses if you are not already immune to MMR. Your provider can tell you if you are immune. Ask your provider about the human papillomavirus (HPV) vaccine if: You have not received the HPV vaccine in the past You have not completed the full vaccine series (you should catch up on this shot) Ask your provider if you should receive other immunizations if you have certain health problems that increase your risk for some diseases such as pneumonia. INFECTIOUS DISEASE SCREENING Women who are sexually active should be screened for chlamydia and gonorrhea up until age 25. Women 25 years and older should be screened for chlamydia and gonorrhea if at high risk. Screening for hepatitis C: All adults ages 18 to 79 should get a one-time test for hepatitis C. people should be screened at every . Screening for human immunodeficiency virus (HIV): All people ages 15 to 65 should get a one-time test for HIV. Depending on your lifestyle and medical history, you may also need to be screened for infections such as syphilis and HIV, as well as other infections. PHYSICAL EXAM All adults should visit their provider from time to time, even if they are healthy. The purpose of these visits is to: Screen for disease Assess your risk of future medical problems Encourage a healthy lifestyle Update your vaccinations and other preventive care services Maintain a relationship with a provider in case of an illness Your height, weight, and BMI should be checked at every exam. During your exam, your provider may ask you about: Depression and anxiety Diet and exercise Alcohol and tobacco use Safety issues, such as using seat belts, smoke detectors, and intimate partner violence Your medicines and risk for interactions SKIN SELF-EXAM Your provider may check your skin for signs of skin cancer, especially if you're at high risk, such as if you: Have had skin cancer before Have close relatives with skin cancer Have a weakened immune system OTHER SCREENING Talk with your provider about colon cancer screening if you have a strong family history of colon cancer or polyps, or if you have had inflammatory bowel disease or polyps yourself. Routine bone density screening of women under 40 is not recommended. Coding Level of Care Code New Pt Prev Care 40-64y(34040) Diagnoses Encounter for general adult medical examination without abnormal findings Z00.00 Obesity (BMI 30-39.9) E66.9 Primary hypertension I10 Hypertension type: primary hypertension Anemia, unspecified type D64.9 Anemia type: unspecified type Prediabetes R73.03 Screening mammogram for breast cancer Z12.31 Screening for cervical cancer Z12.4 Additional Codes PADDY-7 Assessment Billing - PADDY-7 Assessment Tool: PADDY-7 Assessment [id number] ([id number])
[2024-03-14 08:59] VITALS: BP 136/84
== END 2024-03-14 09:08 | disposition home or self-care (01) ==
PROVIDERS: PCP Nurse Practitioner Family; Visit Provider Nurse Practitioner Family
DX: Z00.00 Encounter for general adult medical examination without abnormal findings (principal); E66.9 Obesity, unspecified; Z68.30 Body mass index [BMI] 30.0-30.9, adult; Z23 Encounter for immunization; I10 Essential (primary) hypertension; D64.9 Anemia, unspecified; R73.03 Prediabetes; Z12.31 Encounter for screening mammogram for malignant neoplasm of breast
CPT/HCPCS: 90471; 90715; 99386

== ENCOUNTER 2024-03-14 09:15 | Outpatient (REF) | payer OTHER, SELFPAY ==
[2024-03-14 12:26] LABS: Hematocrit 38.2 % (37.0-47.0); Hemoglobin 12.7 g/dl (12.0-16.0); Mean Corpuscular HGB Conc 33.2 g/dl (31.0-35.0); Mean Corpuscular Hemoglobin 28.9 pg (27.0-33.0); Mean Corpuscular Volume 86.8 fL (80.0-98.0); Mean Platelet Volume 9.4 fL (9.4-12.3); Platelet Count 504 X10*3/uL (160-400); Red Cell Distribution Width 12.4 % (11.0-16.0); White Blood Count 7.4 X10*3/uL (4.8-10.8)
[2024-03-14 12:45] LABS: Estimated Average Glucose 123 mg/dL; Hemoglobin A1c % 5.9 % (<6.0)
[2024-03-14 12:51] LABS: Alanine Aminotransferase 18 U/L (0-31); Albumin Level 3.9 g/dL (3.5-5.0); Alkaline Phosphatase 107 U/L (39-117); Anion Gap 12 (12-20); Aspartate Amino Transferase 15 U/L (5-31); Bilirubin Total 0.4 mg/dL (0.0-1.0); Blood Urea Nitrogen 8 mg/dL (9-16); Calcium 9.4 mg/dL (8.4-10.2); Carbon Dioxide 26 mmol/L (22-29); Chloride 105 mmol/L (96-108); Cholesterol 186 mg/dL (<200); Estimated Glomerular Filt Rate > 60; Glucose Fasting 106 mg/dL (60-99); HDL Cholesterol 47 mg/dL (>40); Iron 58 mcg/dL (30-160); LDL Cholesterol Calculated 123 mg/dL (<100); Percent Iron Saturation 26 % (15-50); Potassium 3.3 mmol/L (3.3-5.1); Sodium 140 mmol/L (135-145); Total Iron Binding Capacity 222 mcg/dL (228-428); Total Protein 7.6 g/dL (6.5-8.0); Triglycerides 81 mg/dL (<150); Unsaturated Iron Binding 164 ug/dL
[2024-03-14 13:10] LABS: Microalbum/Creatinine Ratio Ur 19.1 ug/mg cr (<30)
[2024-03-14 13:22] LABS: TSH reflex Free T4 1.38 uIU/mL (0.32-4.0); Vitamin D 25-OH Total 18.6 ng/mL (>30)
[2024-03-14 13:31] LABS: Folate 5.8 ng/mL (> or = 4.0); Vitamin B12 383 pg/mL (200-900)
== END 2024-03-14 09:16 | disposition home or self-care (01) ==
LOC: HO.WFDLDS 09:15
PROVIDERS: Visit Provider Nurse Practitioner Family
DX: R73.03 Prediabetes (principal); D64.9 Anemia, unspecified; I10 Essential (primary) hypertension; E66.9 Obesity, unspecified
CPT/HCPCS: 36415; 80053; 80061; 82043; 82306; 82570; 82607; 82746; 83036; 83540; 84443; 85027

== ENCOUNTER 2024-03-23 08:11 | Outpatient (REF) | payer OTHER, SELFPAY ==
--- NOTE | ~2024-03-23 | MM_ITS ---
EXAMINATION: MM SCREENING DIGITAL BREAST TOMOSYNTHESIS, BILATERAL CLINICAL INFORMATION: Screening. Asymptomatic. COMPARISON: Mammography: This is a baseline mammogram. TECHNIQUE: Digital breast tomosynthesis is performed in both the craniocaudal and mediolateral oblique views along with computer-aided detection (CAD). Synthesized 2D images are generated from the tomosynthesis. FINDINGS: There are scattered areas of fibroglandular density (ACR BI-RADS breast composition Category b). There are no significant masses, abnormal calcifications, or other abnormalities. MM/MM tomosynthesis screening BI IMPRESSION: No mammographic evidence of malignancy. ASSESSMENT: BI-RADS BI-RADS 1 - Negative RECOMMENDATION: Routine annual mammography screening. 1 year F/U This examination should not preclude the clinical evaluation of a suspicious palpable abnormality. This patient's information was entered into a reminder system with a target due date for their next mammogram.
== END 2024-03-23 08:12 | disposition home or self-care (01) ==
LOC: HO.MAMMO 08:11
PROVIDERS: Visit Provider Nurse Practitioner Family
DX: Z12.31 Encounter for screening mammogram for malignant neoplasm of breast (principal)
CPT/HCPCS: 77063; 77067

== ENCOUNTER → 2024-03-23 08:30 | Outpatient (BNV) | payer OTHER, SELFPAY | PROVIDERS: Visit Provider Radiology Diagnostic Radiology | DX: Z12.31 Encounter for screening mammogram for malignant neoplasm of breast (principal) | CPT/HCPCS: 77063; 77067 ==

== ENCOUNTER 2024-06-29 08:50 | Outpatient (AMB) | payer OTHER, SELFPAY ==
--- NOTE | 2024-06-29 09:05 | MHC.PC.OV ---
Vital Signs 06/29/24 09:07 Height 5 ft 8 in Weight 201 lb 8 oz BMI 30.6 BP 138/78 Blood Pressure Location Rt brachial Position Sitting Respiration 15 Pulse 56 Pulse Source Pulse Oximeter Pulse Oximetry (%) 99 Oxygen Delivery Method Room Air Intake Visit Reasons: follow up blood pressure labs Intake Note: follow up on blood pressure and labs Allergies No Known Allergies Allergy (Verified 06/29/24 09:48) Medication List - Last Reconciled 06/29/24 by Mary Alice Vang [facility]- amlodipine 5 mg PO DAILY ibuprofen 600 mg PO Q6H PRN multivitamin with iron 1 tab PO DAILY Tobacco use date assessed: 03/14/24 Dental Screening Dental Screen Date: 03/14/24 HPI HPI Comments History of Present Illness Details 38-year-old female with prediabetes, hypertension, right renal calculi, diverticulosis, Iron def anemia, Vit D def, B12 def, environmental allergies, obesity, MDD Status post lap matthew Health Maintenance: ? Colon ? Mammo 03/2024 WNL ? DEXA ? PAP referred to [facility] ? Tdap 02/2024 Declined flu Specialists: [facility] Bariatrics Here today to f/u on HTN Taking meds as directed. Not forgetting anymore. Monitors at home and reports no SBP > 140 Denies any chest pain, headache, vision changes. Is due for eye exam, needs referral. Denies any lower ext edema. In regards to low bp, reports she has this some times, but it is more related to her lifestyle - not drinking enough, etc. In regards to pap and Obgyn referral at [facility] there is no female MD, prefers MD that is female. New ref. placed today to [facility] Did attend Bariatric office, not interested in surgery however remains interested in wt loss such as dietary pathway. Has very low motivation, feels depressed. Would like to see a counselor. Does not want meds at this time cough for years, feels in throat, worse when lying flat, described as a kernel stuck in throat; it is dry. comes and goes. Does have tonsil stones. reports mucous in nose and throat upon waking. she is snoring, reports this is new. has not had a sleep study and declined today. Exam: Awake alert NAD PERRLA TM congestion bilat Nares patent, turbinates edematous bilat, L>R, no sinus tenderness Pharynx w/ posterior cobblestoning + PND RRR LS CTAB dizzy after taking deep breaths, better w/ time Plan: cough may be related to tonsil stones, encouraged to gargle w coarse salt and h20 to see if this helps. Start Claritin and Flonase for allergy symptoms. Patient did ask for a other natural remedies she does not like to take medications. Advised that she can use saline nasal rinses and local honey however this may or may not be effective for her. We will also refer her to Allergy and immunology for further treatment of the above Refer to [facility] per request routine [facility] care Refer for Eye Exam [facility] I have advised her to fu with Bariatrics to see if she can just do the dietary part of the program. If not, we can consider alternative options Refer to [facility] for counseling Cont norvasc 5 mg for BP Declined flu RTO in Dec with repeat labs to f/u on chronic conditions This note is constructed using voice recognition software. While every effort has been made to ensure accuracy in office communication professor, still errors may have been included Sometimes, these errors may affect the content or meaning of the given sentence . Total time spent caring for the patient today was 40 minutes. This includes time spent before the visit reviewing the chart, time spent during the visit, and time spent after the visit on documentation [facility] Medical History Acute cholecystitis Urinary tract infection Surgical History History of laparoscopic cholecystectomy (~01/25/24) Social History Household Members: Spouse and Children Housing: House Do you presently have visiting nurse or other home services: No Patient Tobacco Use Status: Former Tobacco user Tobacco use type: Cigarette e-Cigarette/Vaping Use: Never Used Second Hand Smoke Exposure: No service: No Current occupational status: employed Current occupation: [employer] ([employer]) Cognitive needs: No Hearing needs: No Vision needs: No Questionnaire Thrive Questionnaire Date Thrive assessed: 03/14/24 AUDIT C Alcohol Use Questionnaire (AUDIT-C) 2. How many drinks containing alcohol do you have on a typical day when you are drinking?: 1 or 2 3. How often do you have six or more drinks on one occasion?: Never Total Score: 0 PADDY-7 AMB Questionnaire PADDY-7 Date PADDY - 7 assessed: 03/14/24 Source: Developed by Drs. Chavez Villa, Kayla Sharif, Luigi García and colleagues, with an educational tony from [employer]. Physical exam (Primary Care) Vital Signs: Last Vital Signs Pulse 56 06/29/24 09:07 Resp 15 06/29/24 09:07 BP 138/78 06/29/24 09:07 Pulse Ox 99 06/29/24 09:07 Oxygen Delivery Method Room Air 06/29/24 09:07 BMI result Body Mass Index 30.6 Tobacco/Smoking Status: Tobacco use Status Tobacco use date assessed 03/14/24 06/29/24 09:08 Patient Tobacco Use Status Former Tobacco user 06/29/24 09:08 Tobacco use type Cigarette 06/29/24 09:08 e-Cigarette/Vaping Use Never Used 06/29/24 09:08 Thrive Assessment: Date of Thrive Assessment Date Thrive assessed 03/14/24 06/29/24 09:08 Coding Level of Care Code Est Pt Level 5 (87666) Complex EM visit Add On G2211 Diagnoses Primary hypertension I10 Hypertension type: primary hypertension Blurred vision H53.8 Mild episode of recurrent major depressive disorder F33.0 Major depression episode severity: mild Environmental allergies Z91.09 Class 1 obesity E66.811 Obesity (BMI 30-39.9) E66.9 Screening for cervical cancer Z12.4 Assessment & Plan Assessment & Plan (1) HTN (hypertension): Code(s): I10 - Essential (primary) hypertension Category: Medical Qualifiers: Hypertension type: primary hypertension Qualified Code(s): I10 - Essential (primary) hypertension Plan: . (2) Blurred vision: Code(s): H53.8 - Other visual disturbances Category: Medical Plan: . (3) MDD (major depressive disorder), recurrent episode: Code(s): F33.9 - Major depressive disorder, recurrent, unspecified Category: Medical Qualifiers: Major depression episode severity: mild Qualified Code(s): F33.0 - Major depressive disorder, recurrent, mild Plan: . (4) Environmental allergies: Code(s): Z91.09 - Other allergy status, other than to drugs and biological substances Category: Medical Plan: . (5) Class 1 obesity: Code(s): E66.811 - Obesity, class 1 Category: Medical Plan: . (6) Obesity (BMI 30-39.9): Code(s): E66.9 - Obesity, unspecified Category: Medical Plan: . (7) Screening for cervical cancer: Code(s): Z12.4 - Encounter for screening for malignant neoplasm of cervix Category: Medical Plan: . Orders: Referrals [facility] Referral Z12.4 - Encounter for screening for malignant neoplasm of cervix Ophthalmology Referral H53.8 - Other visual disturbances, I10 - Essential (primary) hypertension Nurse Navigator Referral F33.9 - Major depressive disorder, recurrent, unspecified Allergy & Immunology Referral Z91.09 - Other allergy status, other than to drugs and biological substances Medications: New fluticasone propionate 50 mcg/actuation administer into each nostril 1 spray intranasal BID 16 grams 0RF loratadine (Claritin) 10 mg PO DAILY 90 tabs 0RF allergy symptoms
[2024-06-29 09:07] VITALS: BP 138/78; PULSE 56; RESP 15; O2SAT 99; BMI 30.6
== END 2024-06-29 10:17 | disposition home or self-care (01) ==
PROVIDERS: Visit Provider Nurse Practitioner Family
DX: I10 Essential (primary) hypertension (principal); H53.8 Other visual disturbances; F33.0 Major depressive disorder, recurrent, mild; E66.811 Obesity, class 1; Z68.30 Body mass index [BMI] 30.0-30.9, adult; Z91.09 Other allergy status, other than to drugs and biological substances

== ENCOUNTER → 2024-06-29 08:50 | Outpatient (BNVA) | payer OTHER, SELFPAY | PROVIDERS: Visit Provider Nurse Practitioner Family ==

== ENCOUNTER 2025-05-08 11:26 | Outpatient (REF) | payer OTHER, SELFPAY ==
[2025-05-08 14:15] LABS: Hematocrit 37.7 % (37.0-47.0); Hemoglobin 12.7 g/dl (12.0-16.0); Mean Corpuscular HGB Conc 33.7 g/dl (31.0-35.0); Mean Corpuscular Hemoglobin 28.6 pg (27.0-33.0); Mean Corpuscular Volume 84.9 fL (80.0-98.0); NRBC Abs Auto 0.000 X10*3/uL (0.0-0.012); NRBC Pct Auto 0.0 /100WBC (0.0-0.2); Platelet Count 480 X10*3/uL (160-400); Red Blood Count 4.44 X10*6/uL (4.20-5.50); White Blood Count 7.3 X10*3/uL (4.8-10.8)
[2025-05-08 14:48] LABS: Alanine Aminotransferase 21 U/L (0-31); Albumin Level 4.1 g/dL (3.5-5.0); Alkaline Phosphatase 111 U/L (39-117); Anion Gap 11 (12-20); Aspartate Amino Transferase 19 U/L (5-31); Blood Urea Nitrogen 9 mg/dL (9-16); Calcium 8.9 mg/dL (8.4-10.2); Carbon Dioxide 26 mmol/L (22-29); Chloride 106 mmol/L (96-108); Cholesterol 201 mg/dL (<200); Estimated Glomerular Filt Rate > 60; HDL Cholesterol 48 mg/dL (>40); Hemoglobin A1C 144.6445 umol/L; Iron 87 mcg/dL (30-160); Percent Iron Saturation 38 % (15-50); Potassium 3.5 mmol/L (3.3-5.1); Sodium 139 mmol/L (135-145); Total Hemoglobin (HGBA1C) 3333.2984 umol/L; Total Iron Binding Capacity 231 mcg/dL (228-428); Total Protein 7.2 g/dL (6.5-8.0); Triglycerides 77 mg/dL (<150); Unsaturated Iron Binding 144 ug/dL
[2025-05-08 15:22] LABS: Folate 5.9 ng/mL (> or = 4.0); Vitamin B12 364 pg/mL (200-900)
[2025-05-08 18:44] LABS: Microalbum/Creatinine Ratio Ur 19.1 ug/mg cr (<30)
== END 2025-05-08 11:27 | disposition home or self-care (01) ==
LOC: HO.WFDLDS 11:26
PROVIDERS: PCP Nurse Practitioner Family; Visit Provider Nurse Practitioner Family
DX: Z00.00 Encounter for general adult medical examination without abnormal findings (principal); I10 Essential (primary) hypertension; D64.9 Anemia, unspecified; I83.92 Asymptomatic varicose veins of left lower extremity; F33.0 Major depressive disorder, recurrent, mild; Z91.09 Other allergy status, other than to drugs and biological substances; E78.5 Hyperlipidemia, unspecified; R73.03 Prediabetes; E66.811 Obesity, class 1; E55.9 Vitamin D deficiency, unspecified; Z68.31 Body mass index [BMI] 31.0-31.9, adult
CPT/HCPCS: 36415; 80053; 80061; 82043; 82306; 82570; 82607; 82746; 83036; 83540; 84443; 85027; 96127; 99212; 99396

== ENCOUNTER 2025-05-08 11:26 | Outpatient (AMB) | payer OTHER, SELFPAY ==
--- NOTE | 2025-05-08 11:27 | A.OFFPC_ITS ---
Vital Signs 05/08/25 11:32 Height 5 ft 8 in Weight 200 lb 6 oz BMI 30.5 BP 150/90 H Blood Pressure Location Lt brachial Position Sitting Respiration 13 Pulse 98 Pulse Source Pulse Oximeter Temp 97.2 F Temp Source Oral Pulse Oximetry (%) 99 Oxygen Delivery Method Room Air Intake Visit Reasons: n 30 min fu of complex / reschedule Intake Note: Routine Follow up. 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 Required: No Allergies No Known Allergies Allergy (Verified 05/08/25 11:49) Medication List - Last Reconciled 05/08/25 by Mary Alice Vang, [facility]- amlodipine 5 mg PO DAILY fluticasone propionate 50 mcg/actuation 1 spray intranasal BID ibuprofen 600 mg PO Q6H PRN loratadine (Claritin) 10 mg PO DAILY multivitamin with iron 1 tab PO DAILY Tobacco use date assessed: 05/08/25 Dental Screening Dental Screen Date: 05/08/25 Did you have a dental visit in the last 12 months?: Yes Did you have a dental problem in the last 6 months where you did not have access to dental care?: No Was dental information given to patient?: Patient has dentist HPI HPI Comments History of Present Illness Details 39-year-old female with prediabetes, hyp ertension, right renal calculi, diverticulosis, Iron def anemia, Vit D def, B12 def, environmental allergies, obesity, MDD, varicose veins Status post lap matthew Health Maintenance: ? Colon NA ? Mammo 03/2024 WNL ? DEXA NA ? PAP referred to PHOTOGRAPHY COLORIST ? Tdap 02/2024 Declined flu Specialists: Eye Exam [facility] UTD on exam [facility] PHOTOGRAPHY COLORIST -- work in progress. History of Present Illness - The patient is a 39-year-old female pr esenting for a complete physical exam and management of chronic conditions. - Hypertension: Nonadherence to amlodipi ne due to unavailable refills, blood pressure remains unmonitored, previously noted elevated measurement. - Environmental Allergies: Not Utilizes Claritin and Flonase,referred to sanitary chemist but did not go - Anemia: Not taking multivitamin with i daiana. - Wants new referral for medical wt loss ; not surgical. - Varicose Veins: Reports swelling of fe et linked to standing and travel, associated with visible varicosities bilat, worse on L - Attempted engagement with counseling s ervices - did not follow through on this. Denies mdd at this time Review of Systems - Cardiovascular: Reports hypertension, denies chest pain. - Respiratory: Denies cough or difficult y breathing. - Allergy/Immunology: Reports allergy sy mptoms, especially at night. - Dermatologic: Reports presence of vari cose veins with occasional swelling. - Psychiatric: Previously reported depre ssion; denies current symptoms. - Hematologic: Reports mild anemia histo ry. - Gynecological: Reports difficulty obta ining care. Physical Exam General: Well developed, well nourished, in no acute distress. Appears stated age. Head: Normocephalic, atraumatic. Eyes: Pupils are equal, round and reactive to light and accommodation. Conjunctivae are clear. Vision grossly normal. Ears: TMs mild congestion bilat, EACS WNL Nose: Patent, without discharge. Nasal polyps, turbinates edematous and erythematous Neck: Supple, no adenopathy or thyromegaly. Breast: Edu on SBE Lungs: Clear to auscultation bilaterally. No rales, rhonchi or wheeze noted. Good air flow in all berman. Heart: Regular rate and rhythm. No murmurs, click, rubs or gallops are noted. Abdomen: Bowel sounds present in all quadrants. The abdomen is soft, nontender, with no masses or organomegaly noted. No hernias are noted. : Deferred. Reviewed PETER & recommendations for routine PHOTOGRAPHY COLORIST. Pulses: Peripheral pulses are equal and palpable bilaterally. Extremities: No clubbing, cyanosis noted. Some varicose veins present. Neurologic: Gait and station normal. Cranial Nerves 2-12 intact. Motor strength grossly symmetrical and intact. No sensory loss. Balance normal. Skin: No rashes, ulcers, or lesions noted. Turgor is good. Skin color is good. Hair and nails are without abnormalities. Psych: Normal eye contact, affect and mood appropriate, and normal interactions. Patient is alert and appropriate to context. Results Pending Discussion Notes I discussed with the patient her management of hypertension, particularly regarding her medication adherence. It was decided to restart amlodipine after a lapse due to lack of refills and monitoring for any swelling side effects. We talked about the continuation of allergy medications, including the pros and c ons, and clarified the need for consistent usage. The importance of regular follow-up for her mild anemia was emphasized. Suggestions were provided for schedule improvement in her [employer] care amid the regional shortage. I reviewed weight management program options to address misinformation encountered by the patient. Consent was obtained for management recommendations. Patient was given time to ask questions. All questions were answered to their satisfaction. Assessment and Plan 1. Hypertension - Resume amlodipine. - Monitor blood pressure regularly. - Nurse BP recheck in 4 weeks 2. Allergies - Continue Claritin, Flonase. - Consider sanitary chemist if symptoms persist . 3. Anemia - Update labs. - consider restarted MVI with Iron PRN 4. Varicose Veins - Monitor for swelling. - Refer to vascular 5. BMI > 30, refer to [facility] Medical Wt Mgm t Schedule Mammo, PHOTOGRAPHY COLORIST. Labs today. RTO 1 year CPE, sooner PRN Patient Instructions - Restart taking amlodipine for blood pr essure. - Monitor feet and legs for swelling and report any changes. - Continue taking Claritin and Flonase a s directed. - Schedule an updated blood test to [facility] anemia. - Call for a gynecology appointment. - Reschedule mammogram as planned. Consent Patient was informed and verbally consented to the use of an ambient scribe for clinic note documentation during this visit. An additional 30 minutes was spent addressing the problem(s) noted at todays visit. This includes time spent before the visit reviewing the chart, time spent during the visit, and time spent after the visit on documentation reviewing laboratory results, diagnostic imaging, medications, performing a medically necessary evaluation, counseling on diagnoses, care coordination, ordering appropriate tests, ordering appropriate medications, review of tests performed by other providers, reporting test results with the patient, communication with other healthcare providers. [facility] Medical History Acute cholecystitis Urinary tract infection Surgical History History of laparoscopic cholecystectomy (~01/25/24) Family History (Updated 07/26/24 @ 10:06 by Kimberly Hunter CMA) Mother No problems noted. Father Lung cancer Social History (Updated 07/26/24 @ 10:06 by Kimberly Hunter CMA) Household Members: Spouse and Children Housing: House Do you presently have visiting nurse or other home services: No Alcohol intake: current Alcohol intake frequency: holidays/special occasions only Patient Tobacco Use Status: Former Tobacco user Tobacco use type: Cigarette e-Cigarette/Vaping Use: Never Used Second Hand Smoke Exposure: No service: No Current occupational status: employed Current occupation: [employer] ([employer]) Cognitive needs: No Hearing needs: No Vision needs: No Questionnaire PHQ-9 Over the last 2 weeks, how often have you been bothered by any of the following problems? 1. Little interest or pleasure in doing things: not at all 2. Feeling down, depressed, or hopeless: not at all 3. Trouble falling or staying asleep, or sleeping too much: not at all 4. Feeling tired or having little energy: not at all 5. Poor appetite or overeating: not at all 6. Feeling bad about yourself - or that you are a failure or have let yourself or your family down: not at all 7. Trouble concentrating on things, such as reading the newspaper or watching television: not at all 8. Moving or speaking so slowly that other people could have noticed. Or the opposite - being so fidgety or restless that you have been moving around a lot more than usual: not at all 9. Thoughts that you would be better off or of hurting yourself in some way: not at all Total score: 0 Depression Screening Interpretation: Negative Depression Screening Done: Yes 05275 - PHQ-9 Billing: Yes Source: Developed by Drs. Chavez Villa, Kayla Sharif, Luigi García and colleagues, with an educational tony from [employer]. Thrive Questionnaire Date Thrive assessed: 05/08/25 I am a: Patient What is your living situation today?: I have a steady place to live Within the past 12 months, did the food you bought not last and you didn't have the money to get more?: Never true Within the past 12 months, did you worry whether your food would run out before you got money to buy more?: Never true Do you have trouble paying for medicines?: No Do you have trouble getting transportation to medical appointments?: No Do you have trouble paying your heating and electricity bill?: No Do you have trouble taking care of your child, family member or friend?: No Do you have trouble with day-to-day activities such as bathing, preparing meals, shopping, managing finances, etc.?: No Are you currently unemployed and looking for a job?: No Are you interested in more education?: No Please select the resources that you would like help with: None Currently or been in a relationship where the following occur: No concerns reported THRIVE Score: 0 AUDIT C Alcohol Use Questionnaire (AUDIT-C) 1. How often do you have a drink containing alcohol?: 2-4 times a month 2. How many drinks containing alcohol do you have on a typical day when you are drinking?: 1 or 2 3. How often do you have six or more drinks on one occasion?: Never Total Score: 2 Score Reviewed/Action Taken: Yes PADDY-7 AMB Questionnaire PADDY-7 Date PADDY - 7 assessed: 05/08/25 Feeling nervous, anxious, or on edge: 0 = Not at all Not being able to stop or control worryin = Not at all Worrying too much about different things: 0 = Not at all Trouble relaxin = Not at all Being so restless that it is hard to sit still: 0 = Not at all Becoming easily annoyed or irritable: 0 = Not at all Feeling afraid as if something awful might happen: 0 = Not at all Total PADDY-7 score (0-4 normal; 5-9 mild; 10-14 moderate; 15-21 severe): 0 Source: Developed by Drs. Chavez Villa, Kayla Sharif, Luigi García and colleagues, with an educational tony from [employer]. PADDY-7 Assessment Billing PADDY-7 Assessment Tool: PADDY-7 Assessment 84654 Physical exam (Primary Care) Vital Signs: Last Vital Signs Temp 97.2 F 05/08/25 11:32 Pulse 98 05/08/25 11:32 Resp 13 05/08/25 11:32 BP 150/90 H 05/08/25 11:32 Pulse Ox 99 05/08/25 11:32 Oxygen Delivery Method Room Air 05/08/25 11:32 BMI result Body Mass Index 30.5 Tobacco/Smoking Status: Tobacco use Status Tobacco use date assessed 05/08/25 05/08/25 11:30 Patient Tobacco Use Status Former Tobacco user 05/08/25 11:30 Tobacco use type Cigarette 05/08/25 11:30 e-Cigarette/Vaping Use Never Used 05/08/25 11:30 PHQ-9: PHQ-9 Score PHQ-9: Total score 0 05/08/25 11:30 Depression Screening Interpretation: Negative Thrive Assessment: Date of Thrive Assessment Date Thrive assessed 05/08/25 05/08/25 11:30 Currently or been in a relationship where the following occur: No concerns reported Coding Level of Care Code Est Pt Level 4 (82489) Est Pt Prev Care 40-64y(30726) Diagnoses Encounter for general adult medical examination without abnormal findings Z00.00 Mild episode of recurrent major depressive disorder F33.0 Major depression episode severity: mild Environmental allergies Z91.09 Primary hypertension I10 Hypertension type: primary hypertension Borderline hyperlipidemia E78.5 Prediabetes R73.03 Obesity (BMI 30-39.9) E66.9 Class 1 obesity E66.811 Vitamin D deficiency E55.9 Anemia, unspecified type D64.9 Anemia type: unspecified type Screening mammogram for breast cancer Z12.31 Screening for cervical cancer Z12.4 Varicose veins of bilateral lower extremities with pain I83.813 Additional Codes PADDY-7 Assessment Billing - PADDY-7 Assessment Tool: PADDY-7 Assessment 11138 ([id number]) PHQ-9 - 38291 - PHQ-9 Billing: Yes ([id number]) Assessment & Plan Assessment & Plan (1) Encounter for general adult medical examination without abnormal findings: Onset Date: ~05/08/25 Code(s): Z00.00 - Encounter for general adult medical examination without abnormal findings Category: Medical (2) MDD (major depressive disorder), recurrent episode: Code(s): F33.9 - Major depressive disorder, recurrent, unspecified Category: Medical Qualifiers: Major depression episode severity: mild Qualified Code(s): F33.0 - Major depressive disorder, recurrent, mild (3) Environmental allergies: Code(s): Z91.09 - Other allergy status, other than to drugs and biological substances Category: Medical (4) HTN (hypertension): Code(s): I10 - Essential (primary) hypertension Category: Medical Qualifiers: Hypertension type: primary hypertension Qualified Code(s): I10 - Essential (primary) hypertension (5) Borderline hyperlipidemia: Code(s): E78.5 - Hyperlipidemia, unspecified Category: Medical (6) Prediabetes: Code(s): R73.03 - Prediabetes Category: Medical (7) Obesity (BMI 30-39.9): Code(s): E66.9 - Obesity, unspecified Category: Medical (8) Class 1 obesity: Code(s): E66.811 - Obesity, class 1 Category: Medical (9) Vitamin D deficiency: Code(s): E55.9 - Vitamin D deficiency, unspecified Category: Medical (10) Anemia: Code(s): D64.9 - Anemia, unspecified Category: Medical Qualifiers: Anemia type: unspecified type Qualified Code(s): D64.9 - Anemia, unspecified (11) Screening mammogram for breast cancer: Code(s): Z12.31 - Encounter for screening mammogram for malignant neoplasm of breast Category: Medical (12) Screening for cervical cancer: Code(s): Z12.4 - Encounter for screening for malignant neoplasm of cervix Category: Medical (13) Varicose veins of bilateral lower extremities with pain: Code(s): I83.813 - Varicose veins of bilateral lower extremities with pain Category: Medical Plan . Orders: Orders Complete Blood Count no Diff Today E55.9 - Vitamin D deficiency, unspecified, E78.5 - Hyperlipidemia, unspecified, I10 - Essential (primary) hypertension, R73.03 - Prediabetes, Z00.00 - Encounter for general adult medical examination without abnormal findings TSH reflex Free T4 Today E55.9 - Vitamin D deficiency, unspecified, E78.5 - Hyperlipidemia, unspecified, I10 - Essential (primary) hypertension, R73.03 - Prediabetes, Z00.00 - Encounter for general adult medical examination without abnormal findings Vitamin B12 and Folate Today E55.9 - Vitamin D deficiency, unspecified, E78.5 - Hyperlipidemia, unspecified, I10 - Essential (primary) hypertension, R73.03 - Prediabetes, Z00.00 - Encounter for general adult medical examination without abnormal findings Comprehensive Met. Panel Today E55.9 - Vitamin D deficiency, unspecified, E78.5 - Hyperlipidemia, unspecified, I10 - Essential (primary) hypertension, R73.03 - Prediabetes, Z00.00 - Encounter for general adult medical examination without abnormal findings Hemoglobin A1c Today E55.9 - Vitamin D deficiency, unspecified, E78.5 - Hyperlipidemia, unspecified, I10 - Essential (primary) hypertension, R73.03 - Prediabetes, Z00.00 - Encounter for general adult medical examination without abnormal findings Lipid Panel Today E55.9 - Vitamin D deficiency, unspecified, E78.5 - Hyperlipidemia, unspecified, I10 - Essential (primary) hypertension, R73.03 - Prediabetes, Z00.00 - Encounter for general adult medical examination without abnormal findings Microalbumin, Random (w Creat) Today E55.9 - Vitamin D deficiency, unspecified, E78.5 - Hyperlipidemia, unspecified, I10 - Essential (primary) hypertension, R73.03 - Prediabetes, Z00.00 - Encounter for general adult medical examination without abnormal findings Vitamin D 25-OH Total Today E55.9 - Vitamin D deficiency, unspecified, E78.5 - Hyperlipidemia, unspecified, I10 - Essential (primary) hypertension, R73.03 - Prediabetes, Z00.00 - Encounter for general adult medical examination without abnormal findings Referrals Medical Weight Management Referral E66.811 - Obesity, class 1, E66.9 - Obesity, unspecified Vascular Surgery Referral I83.813 - Varicose veins of bilateral lower extremities with pain Medications: Refilled amlodipine 5 mg PO DAILY 90 tabs 2RF loratadine (Claritin) 10 mg PO DAILY 90 tabs 2RF allergy symptoms fluticasone propionate 50 mcg/actuation administer into each nostril 1 spray intranasal BID 16 grams 12RF Patient Instructions: Health screenings for women You should visit your health care provider from time to time, even if you are healthy. The purpose of these visits is to: Screen for medical issues Assess your risk for future medical problems Encourage a healthy lifestyle Update vaccinations and other preventive care services Help you get to know your provider in case of an illness Information Even if you feel fine, you should still see your provider for regular checkups. These visits can help you avoid problems in the future. For example, the only way to find out if you have high blood pressure is to have it checked regularly. High blood sugar and high cholesterol levels also may not have any symptoms in the early stages. A simple blood test can check for these conditions. There are specific times when you should see your provider or receive specific health screenings. The [place] Preventive Services Task Force publishes a list of recommended screenings. Below are screening guidelines for women ages 18 to 39. BLOOD PRESSURE SCREENING Your blood pressure should be checked at least once every 3 to 5 years if: Your blood pressure is in the normal range (top number less than 120 mm Hg and bottom number less than 80 mm Hg) You don't have risk factors for high blood pressure Ask your provider if you need your blood pressure checked more often if: The top number is 120 to 129 mm Hg or the bottom number is 70 to 79 mm Hg You have diabetes, heart disease, kidney problems, are overweight, or have certain other health conditions You have a first-degree relative with high blood pressure You are Black You had high blood pressure during a If the top number is 130 mm Hg or greater or the bottom number is 80 mm Hg or greater, this is considered stage 1 hypertension. Schedule an appointment with your provider to learn how you can reduce your blood pressure. Watch for blood pressure screenings in your area. Ask your provider if you can stop in to have your blood pressure checked. BREAST CANCER SCREENING Experts do not agree about the benefits of breast self-exams in finding breast cancer or saving lives. Talk to your provider about what is best for you. A screening mammogram is not recommended for most women under age 40. Your provider may discuss and recommend mammograms, MRI scans, or ultrasounds if you have an increased risk for breast cancer, such as: A mother or sister who had breast cancer at a young age (most often starting screening earlier than the age the close relative was diagnosed) You carry a high-risk genetic marker CERVICAL CANCER SCREENING Cervical cancer screening should start at age 21 years unless your provider advises otherwise. After the first test: Women ages 21 through 29 should have a Pap test every 3 years. Exoprts do not agree on whether HPV testing is recommended for this age group. Women ages 30 through 65 should be screened with either a Pap test every 3 years or the HPV test every 5 years or both tests every 5 years (called cotesting ). Women who have been treated for precancer (cervical dysplasia) should continue to have Pap tests for 20 years after treatment or until age 65, whichever is longer. If you have had your uterus and cervix removed (total hysterectomy), and you have not been diagnosed with cervical cancer or precancer (high grade cervical neoplasia), you do not need cervical cancer screening. CHOLESTEROL SCREENING Cholesterol screening should begin at: Age 45 for women with no known risk factors for coronary heart disease Age 20 for women with known risk factors for coronary heart disease Repeat cholesterol screening should take place: Every 5 years for women with normal cholesterol levels More often if changes occur in lifestyle (including weight gain and diet) More often if you have diabetes, heart disease, kidney problems, or certain other conditions DIABETES SCREENING You should be screened for diabetes starting at age 35 and then repeated every 3 years if you have no risk factors for diabetes. Screening may need to start earlier and be repeated more often if you have other risk factors for diabetes, such as: You have a first degree relative with diabetes. You are overweight or have obesity. You have high blood pressure, prediabetes, or a history of heart disease. Screening for diabetes should be done if you are planning to become and you are overweight and have other risk factors such as high blood pressure. DENTAL EXAM Go to the dentist once or twice every year for an exam and cleaning. Your dentist will evaluate if you need more frequent visits. EYE EXAM Have an eye exam every 5 to 10 years before age 40. If you have vision problems, have an eye exam every 2 years or more often if recommended by your provider. You should have an eye exam that includes an examination of your retina (back of your eye) at least every year if you have diabetes. IMMUNIZATIONS Commonly needed vaccines include: Flu shot: get one every year. COVID-19 vaccine: ask your provider what is best for you. Tetanus-diphtheria and acellular pertussis (Tdap) vaccine: have one at or after age 19 as one of your tetanus-diphtheria vaccines if you did not receive it as an adolescent. Tetanus-diphtheria: have a booster (or Tdap) every 10 years. Varicella vaccine: receive 2 doses if you never had chickenpox or the varicella vaccine. Hepatitis B vaccine: receive 2, 3, or 4 doses, depending on your exact circumstances. Measles, mumps, and rubella (MMR) vaccine: receive 1 to 2 doses if you are not already immune to MMR. Your provider can tell you if you are immune. Ask your provider about the human papillomavirus (HPV) vaccine if: You have not received the HPV vaccine in the past You have not completed the full vaccine series (you should catch up on this shot) Ask your provider if you should receive other immunizations if you have certain health problems that increase your risk for some diseases such as pneumonia. INFECTIOUS DISEASE SCREENING Women who are sexually active should be screened for chlamydia and gonorrhea up until age 25. Women 25 years and older should be screened for chlamydia and gonorrhea if at high risk. Screening for hepatitis C: All adults ages 18 to 79 should get a one-time test for hepatitis C. people should be screened at every . Screening for human immunodeficiency virus (HIV): All people ages 15 to 65 should get a one-time test for HIV. Depending on your lifestyle and medical history, you may also need to be screened for infections such as syphilis and HIV, as well as other infections. PHYSICAL EXAM All adults should visit their provider from time to time, even if they are healthy. The purpose of these visits is to: Screen for disease Assess your risk of future medical problems Encourage a healthy lifestyle Update your vaccinations and other preventive care services Maintain a relationship with a provider in case of an illness Your height, weight, and BMI should be checked at every exam. During your exam, your provider may ask you about: Depression and anxiety Diet and exercise Alcohol and tobacco use Safety issues, such as using seat belts, smoke detectors, and intimate partner violence Your medicines and risk for interactions SKIN SELF-EXAM Your provider may check your skin for signs of skin cancer, especially if you're at high risk, such as if you: Have had skin cancer before Have close relatives with skin cancer Have a weakened immune system OTHER SCREENING Talk with your provider about colon cancer screening if you have a strong family history of colon cancer or polyps, or if you have had inflammatory bowel disease or polyps yourself. Routine bone density screening of women under 40 is not recommended.
[2025-05-08 11:32] VITALS: BP 150/90; PULSE 98; RESP 13; TEMP 36.2; O2SAT 99; BMI 30.5
== END 2025-05-08 12:17 | disposition home or self-care (01) ==
PROVIDERS: PCP Nurse Practitioner Family; Visit Provider Nurse Practitioner Family
DX: Z00.00 Encounter for general adult medical examination without abnormal findings (principal); F33.0 Major depressive disorder, recurrent, mild; E66.811 Obesity, class 1; Z68.30 Body mass index [BMI] 30.0-30.9, adult; Z91.09 Other allergy status, other than to drugs and biological substances; I10 Essential (primary) hypertension; E78.5 Hyperlipidemia, unspecified; R73.03 Prediabetes; E55.9 Vitamin D deficiency, unspecified; D64.9 Anemia, unspecified; I83.813 Varicose veins of bilateral lower extremities with pain; Z12.31 Encounter for screening mammogram for malignant neoplasm of breast

== ENCOUNTER → 2025-06-08 08:55 | Outpatient (BNVA) | payer OTHER, SELFPAY | PROVIDERS: PCP Nurse Practitioner Family | DX: Z01.30 Encounter for examination of blood pressure without abnormal findings (principal) | CPT/HCPCS: 99211 ==

== ENCOUNTER → 2025-06-22 09:54 | Outpatient (BNVA) | payer OTHER, SELFPAY | PROVIDERS: PCP Nurse Practitioner Family | DX: I10 Essential (primary) hypertension (principal) | CPT/HCPCS: 99211 ==

== ENCOUNTER 2025-08-10 15:24 | Outpatient (AMB) | payer OTHER, SELFPAY ==
[2025-08-10 15:29] VITALS: BMI 30.4
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
== END 2025-08-11 07:17 | disposition home or self-care (01) ==
LOC: HO.HVS 15:25
PROVIDERS: PCP Nurse Practitioner Family; Visit Provider Surgery Vascular Surgery
DX: I83.12 Varicose veins of left lower extremity with inflammation (principal)
CPT/HCPCS: 99214

== ENCOUNTER → 2025-08-10 15:24 | Outpatient (BNVA) | payer OTHER, SELFPAY | PROVIDERS: PCP Nurse Practitioner Family; Visit Provider Surgery Vascular Surgery | DX: I83.12 Varicose veins of left lower extremity with inflammation (principal) | CPT/HCPCS: 99212 ==

== ENCOUNTER 2025-09-05 10:27 | Outpatient (REF) | payer OTHER, SELFPAY ==
--- NOTE | ~2025-09-05 | US_ITS ---
EXAMINATION: US LOWER EXTREMITY VENOUS (REFLUX EXAM), BILATERAL CLINICAL INFORMATION: I 83.12 COMPARISON: None. TECHNIQUE: Color flow triplex imaging and compression Doppler was performed to evaluate both the deep and the superficial systems bilaterally. To evaluate the superficial system, the examination was performed in the upright position. Color-flow Doppler ultrasound and compression ultrasound were utilized. In addition, maneuvers were utilized to demonstrate reflux. FINDINGS: 1. DEEP VENOUS ULTRASOUND OF THE RIGHT LOWER EXTREMITY: Common Femoral Vein: Compressible, normal respiratory variation and augmented flow. Femoral Vein: Compressible, normal color flow and augmentation. Popliteal Vein: Compressible, normal augmentation. Deep Reflux: There is no evidence of reflux in the deep system in either the common femoral vein, superficial femoral or the popliteal vein. There is no evidence of a Cardona's cyst. 2. SUPERFICIAL ULTRASOUND WITH DOPPLER OF RIGHT LOWER EXTREMITY: GREAT SAPHENOUS VEIN: Saphenofemoral Junction: 0.6 cm; Reflux: 0 ms Proximal Thigh: 0.4 cm; Reflux: 0 ms Mid Thigh: 0.3 cm; Reflux: 0 ms Distal Thigh: 0.3 cm; Reflux: 2808 ms At Knee: 0.2 cm; Reflux: 2016 ms Proximal Calf: 0.2 cm; Reflux: 704 ms Mid Calf: 0.3 cm; Reflux: 0 ms Distal Calf: 0.2 cm; Reflux: 0 ms DUPLICATED MEDIAL GREAT SAPHENOUS VEIN: Diameter: None imaged Reflux: NA DUPLICATED LATERAL GREAT SAPHENOUS VEIN: Diameter: 0.2 cm. Reflux: NA SMALL SAPHENOUS VEIN: Saphenopopliteal Junction: 0.2 cm; Reflux: 0 ms Proximal: 0.1 cm; Reflux: 0 ms Distal: 0.1 cm; Reflux: 0 ms VEIN OF GIACOMINI: Size: NA Reflux: NA PERFORATORS: Location: Mid calf. Size: 0.2 cm. Reflux: NA VARICOSITIES: Location: Mid thigh. Size: 0.3 cm. Reflux: NA 3. DEEP VENOUS ULTRASOUND OF THE LEFT LOWER EXTREMITY: Common Femoral Vein: Compressible, normal respiratory variation and augmented flow. Femoral Vein: Compressible, normal color flow and augmentation. Popliteal Vein: Compressible, normal augmentation. Deep Reflux: There is no evidence of reflux in the deep system in either the common femoral vein, superficial femoral or the popliteal vein. There is no evidence of a Cardona's cyst. 4. SUPERFICIAL ULTRASOUND WITH DOPPLER OF LEFT LOWER EXTREMITY: GREAT SAPHENOUS VEIN: Saphenofemoral Junction: 0.8 cm; Reflux: 0 ms Proximal Thigh: 0.4 cm; Reflux: 0 ms Mid Thigh: 0.4 cm; Reflux: 2808 ms Distal Thigh: 0.4 cm; Reflux: 2656 ms At Knee: 0.3 cm; Reflux: 2176 ms Proximal Calf: 0.2 cm; Reflux: 1156 ms Mid Calf: 0.2 cm; Reflux: 0 ms Distal Calf: 0.2 cm; Reflux: 0 ms DUPLICATED MEDIAL GREAT SAPHENOUS VEIN: Diameter: None imaged Reflux: NA DUPLICATED LATERAL GREAT SAPHENOUS VEIN: Diameter: None imaged. Reflux: NA SMALL SAPHENOUS VEIN: Saphenopopliteal Junction: 0.2 cm; Reflux: 0 ms Proximal: 0.1 cm; Reflux: 0 ms Distal: 0.2 cm; Reflux: 0 ms VEIN OF GIACOMINI: Size: 0.2 cm. Reflux: NA PERFORATORS: Location: None imaged Size: NA Reflux: NA VARICOSITIES: Location: knee Size: 0.4 cm. Reflux: 2172 ms. US/US venous insuf bilat IMPRESSION: Right: Venous insufficiency, great saphenous vein from above the knee to below the knee. Perforators hand varices without reflux. Left: Venous insufficiency, great saphenous vein from the mid thigh to below the knee. Varices with reflux in the knee. Electronically signed by: Galen Jacobo MD 09/05/2025 11:37 AM [facility]
== END 2025-09-05 10:28 | disposition home or self-care (01) ==
LOC: HO.US 10:27
PROVIDERS: Visit Provider Surgery Vascular Surgery
DX: I83.12 Varicose veins of left lower extremity with inflammation (principal)
CPT/HCPCS: 93970

== ENCOUNTER → 2025-09-05 10:29 | Outpatient (BNV) | payer OTHER, SELFPAY | PROVIDERS: Visit Provider Radiology Diagnostic Radiology | DX: I83.12 Varicose veins of left lower extremity with inflammation (principal) | CPT/HCPCS: 93970 ==